=== PATIENT | male | born 1975 | race Caucasian/White ===

== ENCOUNTER 2019-08-25 15:48 | Observation (INO) | payer OTHER, SELFPAY ==
[2019-08-25 15:48] VITALS: BP 162/78; PULSE 84; RESP 18; TEMP 36.7; O2SAT 99
[2019-08-25 15:49] VITALS: BP 162/78; PULSE 87; RESP 16; TEMP 36.7; O2SAT 99; BMI 25.9
--- NOTE | 2019-08-25 16:04 | CT_ITS ---
STUDY: CT ABDOMEN AND PELVIS WITHOUT CONTRAST REASON FOR EXAM: Male, 43 years old. RT FLANK PAIN WORSENING, N/V LITHOTRIPSY YESTERDAY RADIATION DOSAGE (If Supplied By Facility): CTDIvol = ( 7.85 ) mGy, DLP = ( 392.22 ) mGycm TECHNIQUE: Transaxial images were obtained from the dome of the diaphragm to the symphysis pubis without oral contrast, and without intravenous contrast. Sagittal and coronal images were reconstructed. Individualized dose optimization techniques were used for this CT. COMPARISON: None. FINDINGS: Minor subsegmental atelectasis or scarring in both lower lobes.. The visualized portions of the heart are within normal limits. Small hiatal hernia is present Normal liver. Normal gallbladder and extrahepatic biliary system. Normal spleen. Normal pancreas. Normal bilateral adrenal glands. There are 2 nonobstructing left renal calculi. No evidence for hydronephrosis or renal mass. There are multiple tiny nonobstructing calculi in the right kidney however there is also hydroureteronephrosis association with stranding in the fat. There is a very tiny calculus in the distal right ureter just proximal to the pelvic junction measuring approximately 1 to 2 mm in size Normal visualized stomach. Mild diffuse ileus pattern is noted. No evidence for acute appendicitis Normal abdominal aorta. Normal inferior vena cava. Normal retroperitoneum. Normal urinary bladder. Normal abdominal wall. Lumbar spine demonstrates mild spondylosis. CT/Abdomen/Pelvis without Cont IMPRESSION: Bilateral nephrolithiasis. Right hydroureteronephrosis secondary to tiny calculus in the distal ureter just proximal to the ureterovesical junction Electronically Signed: Chris Liu MD at 16:36 EDT , Service support ,
[2019-08-25] MEDS: Ketorolac 30 MG/ML Syringe IV (16:10)
[2019-08-25] MEDS: Ondansetron 4 MG/2 ML Vial IV (16:10)
[2019-08-25 16:15] LABS: Absolute Lymphocyte Count 2.67 X10^3/uL (0.83-4.51); Basophil# 0.03 X10^3/uL; Basophil% 0.3 % (0-1); Eosinophil# 0.07 X10^3/uL; Eosinophils% 0.6 % (0-5); Hematocrit 36.9 % (40-54); Lymphocyte # 2.67 X10^3/ul (4.0); Mean Corp Hgb Conc 32.5 g/dL (32-36); Mean Corpuscular Volume 95.3 fL (80-94); Mean Platelet Vol. 8.9 fl (6.2-12.0); Monocyte% 6.9 % (0-10); NRBC Flagged by Analyzer 0 % (0-5); Neutrophil # 7.99 X10^3/uL (2.7-7.7); Neutrophil % 68.6 % (47-70); Platelet Count 238 K/mm3 (150-450); RBC Distribution Width SD 45.2 fl (35.1-43.9); Red Blood Count 3.87 M/mm3 (4.6-6.2); White Blood Count 11.6 K/mm3 (4.4-11.0)
--- NOTE | 2019-08-25 16:15 | ED.VISSUMM ---
- ER Visit Summary Date of Service: 08/25/19 Chief Complaint: Right flank pain History of Present Illness: The patient is a 43 M presenting with right flank pain. Patient has history of kidney stones and had lithotripsy performed yesterday per Dr. Killian at [place]. He has had nausea vomiting and persistent right flank pain. He continues to have hematuria, denies dysuria. Denies fever. He was previously taking [place] since Saturday but has discontinued this. He has not had a bowel movement since Saturday. Denies other complaints. Physical Examination: Vitals are stable. Patient is afebrile. Alert no acute distress. HEENT exam is unremarkable. Neck is supple. Lungs are clear and equal bilaterally. Heart is regular rate and rhythm. Abdomen is soft nontender nondistended. Right CVA tenderness. No guarding or rebound Extremities are unremarkable. Skin is warm and dry. No focal neurologic deficit. Remainder of exam is unremarkable. Emergency Department Course and Treatment: Patient was given IV fluids, Toradol, Zofran. CBC shows white count 11.6, hemoglobin 12.0. Chemistries show potassium 3.3, BUN 22, creatinine 1.39. CT abdomen pelvis shows bilateral nephrolithiasis. Right hydroureteronephrosis secondary to tiny calculus in the distal ureter just proximal to the ureterovesical junction. Patient's pain is improved. Discussed with Dr. Killian. Patient will be admitted. Disposition: Admission Impression: Urolithiasis This note was generated with [employer] dictation software. It may contain incorrect words, spelling, and punctuation that were not noted in review of the chart prior to signing ED Disposition - Plan for ED Patient: Referrals: Oswald Ren DO [Primary Care Provider] -
[2019-08-25 16:29] LABS: Anion Gap 4 (5-15); BUN 22 mg/dL (7-18); BUN/Creat Ratio 15.8 RATIO (10-20); Calcium,Total 8.6 mg/dL (8.5-10.1); Chloride 112 mmol/L (98-107); Creatinine, Serum 1.39 mg/dL (0.70-1.30); EST Glomerular Filtration Rate 59 mL/min (>60); Est Glom Filt Rate - Afr Amer 71 mL/min (>60); Estimated Creatinine Clearance 68.52 ml/min; Glucose 97 mg/dL (74-106); Potassium 3.3 mmol/L (3.5-5.1); Sodium Level 143 mmol/L (136-145)
--- NOTE | 2019-08-25 17:28 | PCM.HP.STD ---
History of Present Illness Date of Admission: 08/25/19 Chief Complaint: Right renal colic status post ESWL The patient is a 43 year old male who was treated for shockwave lithotripsy yesterday stone broke up well we did not put an stent and it was only an 8 mm stone came in today to the emergency room with severe renal colic and pain nausea vomiting CAT scan was done stones broken up multiple small fragments in the right kidney he is passing 1 of the small fragments in the distal ureter minimal hydronephrosis. Past Medical History Allergies morphine Allergy (Verified 08/25/19 15:51) Swelling Home Medications: Ambulatory Orders Medication Instructions Recorded NK 08/25/19 Surgical History: no surgical history Smoking Status: Never smoker Tobacco Use: Non-smoker Review of Systems Constitutional: Denies: Chills, Fever, Weight Change HEENT: Denies: Head Aches, Sinus Congestion, Sinus Drainage Cardiovascular: Denies: Chest Pain, Palpitations Respiratory: Denies: Cough, Shortness of breath at rest, Sputum production Gastrointestinal: Denies: Abdominal Pain, Nausea, Vomiting Genitourinary: Denies: Dysuria Musculoskeletal: Denies: Joint Pain, Joint Tenderness Skin: Denies: Rash, Wounds Neurological: Denies: Numbness, Tingling, Focal weakness Psychiatric: Denies: Anxiety, Depression, Homicidal Ideations, Suicidal Ideations Hematologic/ Lymphatic: Denies: Easy Bruising, Easy Bleeding VTE Information - Inpt Only VTE Present on Admission: No VTE Mechan Device Prophylaxis: SCD's - Physical Exam Vitals/I&O's: Vital Signs Temp Pulse Resp BP Pulse Ox 98.0 F 87 16 162/78 H 99 08/25/19 15:49 08/25/19 15:49 08/25/19 15:49 08/25/19 15:49 08/25/19 15:49 Oxygen Delivery Method Room Air Weight: 79.5 kg Body Mass Index (BMI) 25.9 General: Alert, Oriented x3, Cooperative HEENT: Atraumatic, PERRLA, EOMI, Normocephalic Neck: Supple, No JVD, Negative Carotid Bruits Lungs: Clear to auscultation, Normal air movement Cardiovascular: Regular rate, No murmurs Abdomen: Bowel Sounds Present, Soft, Non Tender Extremities: No edema, Capillary Refill Less than 3 Seconds Skin: No rashes, No breakdown Musculoskeletal: No Tenderness to Palpation of Joints or Extremities Neurological: Cranial nerves II-XII grossly intact Psych/Mental Status: Normal Affect, Appropriate Laboratory Results 08/25/19 16:07: WBC 11.6 H, RBC 3.87 L, Hgb 12.0 L, Hct 36.9 L, MCV 95.3 H, MCH 31.0, MCHC 32.5, RDW Std Deviation 45.2 H, RDW Coeff of Juan Jose 13.0, Plt Count 238, MPV 8.9, Immature Gran % (Auto) 0.600, Neut % (Auto) 68.6, Lymph % (Auto) 23.0, Pike % (Auto) 6.9, Eos % (Auto) 0.6, Baso % (Auto) 0.3, Absolute Neuts (auto) 8.0 H, Absolute Lymphs (auto) 2.67, Nucleated RBC % 0 08/25/19 16:07: Sodium 143, Potassium 3.3 L, Chloride 112 H, Carbon Dioxide 27.0, Anion Gap 4 L, BUN 22 H, Creatinine 1.39 H, Estim Creat Clear Calc 68.52, Est GFR (MDRD) Af Amer 71, Est GFR (MDRD) Non-Af 59 L, BUN/Creatinine Ratio 15.8, Glucose 97, Calcium 8.6 Current Medications Sodium Chloride () 1,000 mls @ 250 mls/hr IV .Q4H [facility] Assessment/Plan Status post ESWL passing a very small fragment has severe pain required the ER visit for pain control we will keep him overnight and see how he does if he does okay we may send him home with just pain medicine if he still has more episodes of severe pain may elect to place a stent tomorrow in the OR patient was agreeable with that
[2019-08-25 17:49] LABS: Bacteria 0 SEEN /hpf (None Seen); Mucous, Urine 0 SEEN /hpf (<or=2+); Squamous Epithelial Cells - UA 0 SEEN /hpf (0-5)
[2019-08-25] MEDS: 0.9% Normal Saline 1,000 ML 100 ML IV ×3 (18:00→22:43)
[2019-08-25 18:01] VITALS: BP 138/79; PULSE 74; RESP 16; TEMP 36.7; O2SAT 95
[2019-08-25 18:09] LABS: Color, Urine Yellow (Yellow); Glucose, Dipstick Normal (Normal); Ketone-Dipstick Negative (Negative); Leukocyte Esterase-Dipstick 25 /ul (Negative); Nitrite-Dipstick Negative (Negative); Occult Blood-Urine 250 /ul (Negative); Protein-Dipstick Negative (Negative); Specific Gravity, Urine 1.015 (1.002-1.030); Urine Bilirubin Dipstick Negative (Negative); Urine Clarity Clear (Clear); Urine Urobilinogen Normal (Normal)
[2019-08-25 18:36] LABS: Red Blood Cells-Urine 5-10 SEEN /hpf (0-5); White Blood Cells 0-5 SEEN /hpf (0-5)
[2019-08-25 18:44] VITALS: BMI 25.5
[2019-08-25 18:49] VITALS: BP 133/79; PULSE 75; RESP 20; TEMP 37.3; O2SAT 99
[2019-08-25] MEDS: HYDROcodone Bitartrate/Apap 5/325 Tablet PO (18:56)
[2019-08-25 19:33] VITALS: BMI 25.5
[2019-08-25] MEDS: Docusate Sodium 100 MG Capsule PO (22:44)
[2019-08-25] MEDS: Ketorolac 15 MG/ML Vial IV (22:44)
[2019-08-25] MEDS: Magnesium Hydroxide 30 ML UDC 15 ML PO (22:49)
[2019-08-25] MEDS: Cefdinir 300 MG Capsule PO (22:57)
[2019-08-26] MEDS: 0.9% Normal Saline 1,000 ML 100 ML IV (05:30)
--- NOTE | 2019-08-26 06:57 | DCINST_ITS ---
Discharge Diet: Light diet - advance as tolerated Discharge Activity: Return to Normal Activity Call your doctor if your incision/area has: Increased Pain/ Swelling Allergies/Adverse Reactions: Allergies morphine Allergy (Verified 08/25/19 15:51) Swelling Medications to take at Discharge NK 08/25/19 Primary Care Physician: Oswald Ren DO [Primary Care Provider] - Test Results: Test results from this visit will be discussed in further detail at your follow- up appointment, if applicable. Please Follow Up With: Roger Killian MD When: in 2 weeks, please call to make an appointment.
[2019-08-26 07:30] VITALS: BP 149/90; PULSE 66; RESP 18; TEMP 37; O2SAT 95
[2019-08-26] MEDS: Docusate Sodium 100 MG Capsule PO (07:38)
[2019-08-26] MEDS: Bisacodyl 5 MG Tablet PO (07:38)
== END 2019-08-26 08:13 | disposition home or self-care (01) ==
LOC: ED 16:33 → MS3 18:11
PROVIDERS: Admitting Provider Urology; Emergency Provider Emergency Medicine; PCP Family Medicine; Visit Provider Urology
DX: N13.2 Hydronephrosis with renal and ureteral calculous obstruction (principal); Z98.890 Other specified postprocedural states
CPT/HCPCS: 74176; 80048; 81001; 85025; 96361; 96374; 96375; 96376; 99218; 99284; J7030; A4216; G0378; J2405

== ENCOUNTER → 2019-09-03 10:05 | Outpatient (CLI) | payer OTHER, SELFPAY ==
[2019-08-25 18:44] VITALS: BMI 25.5
--- NOTE | 2019-09-03 10:35 | RAD_ITS ---
STUDY: X-RAY - ABDOMEN/PELVIS REASON FOR EXAM: Male, 43 years old. FOLLOW UP KIDNEY STONE RT SIDE TECHNIQUE: Single AP view of the abdomen / pelvis. COMPARISON: None. FINDINGS: There is a moderate amount of colonic fecal material. The visualized liver, spleen and kidneys are grossly normal in size and morphology. Normal soft tissue structures. Normal visualized osseous structures. RAD/Abdomen Single View IMPRESSION: Normal x-ray examination of the abdomen and pelvis. Electronically Signed: Eddie Allen, at 12:47 EDT , Service support ,
== END ==
PROVIDERS: PCP Family Medicine; Referring Provider Urology; Visit Provider Urology
DX: N20.0 Calculus of kidney (principal)
CPT/HCPCS: 74018; 82360

== ENCOUNTER 2019-09-11 09:17 | Day surgery (SDC) | payer OTHER, SELFPAY ==
[2019-09-11] VITALS (7 sets, daily range): BP systolic 107–137; BP diastolic 59–85; PULSE 61–73; RESP 14–16; TEMP 36–36.7; O2SAT 97–100; BMI 24.3
[2019-09-11] MEDS: Lactated Ringers 1,000 ML 100 ML IV ×2 (09:52→13:05)
--- NOTE | 2019-09-11 10:34 | PCM.HP.STD ---
Problem List (1) Left renal stone Status: Acute History of Present Illness Date of Admission: 09/11/19 Chief Complaint: Left kidney stone The patient is a 43 year old male with a history of kidney stones who has a left kidney stone in the upper pole the left kidney about 8 to 9 mm in size and plan to proceed with shockwave lithotripsy and stent placement of the left side Past Medical History Allergies morphine Allergy (Verified 09/11/19 09:36) Swelling Home Medications: Ambulatory Orders Medication Instructions Recorded Acetaminophen [Tylenol Extra 500 - 1,000 mg PO Q6H PRN PRN 09/07/19 Strength] Surgical History: no surgical history Smoking Status: Never smoker Tobacco Use: Non-smoker Review of Systems Constitutional: Denies: Chills, Fever, Weight Change HEENT: Denies: Head Aches, Sinus Congestion, Sinus Drainage Cardiovascular: Denies: Chest Pain, Palpitations Respiratory: Denies: Cough, Shortness of breath at rest, Sputum production Gastrointestinal: Denies: Abdominal Pain, Nausea, Vomiting Genitourinary: Denies: Dysuria Musculoskeletal: Denies: Joint Pain, Joint Tenderness Skin: Denies: Rash, Wounds Neurological: Denies: Numbness, Tingling, Focal weakness Psychiatric: Denies: Anxiety, Depression, Homicidal Ideations, Suicidal Ideations Hematologic/ Lymphatic: Denies: Easy Bruising, Easy Bleeding VTE Information - Inpt Only VTE Present on Admission: No VTE Mechan Device Prophylaxis: SCD's Patient Problems: Active and Suspected Problems Left renal stone (Acute) - Physical Exam Vitals/I&O's: Vital Signs Temp Pulse Resp BP Pulse Ox 98.1 F 63 15 122/67 H 99 09/11/19 09:37 09/11/19 09:37 09/11/19 09:37 09/11/19 09:37 09/11/19 09:37 Oxygen Delivery Method Room Air Weight: 74.7 kg Body Mass Index (BMI) 24.3 General: Alert, Oriented x3, Cooperative HEENT: Atraumatic, PERRLA, EOMI, Normocephalic Neck: Supple, No JVD, Negative Carotid Bruits Lungs: Clear to auscultation, Normal air movement Cardiovascular: Regular rate, No murmurs Abdomen: Bowel Sounds Present, Soft, Non Tender Extremities: No edema, Capillary Refill Less than 3 Seconds Skin: No rashes, No breakdown Musculoskeletal: No Tenderness to Palpation of Joints or Extremities Neurological: Cranial nerves II-XII grossly intact Psych/Mental Status: Normal Affect, Appropriate Microbiology Past 72 Hours 09/10/19 16:30 Mucosa - Nasopharyngeal Coronavirus COVID-19 PCR - Final Laboratory Results 09/11/19 16:30: COVID-19 ([facility]) Cancelled Current Medications Lactated Ringer's () 1,000 mls @ 100 mls/hr IV .Q10H TI Last Admin: 09/11/19 09:52 Dose: 100 mls/hr Documented by: Assessment/Plan All Active Problems Left renal stone (Acute) Plan to proceed with shockwave lithotripsy and left stent placement.
--- NOTE | 2019-09-11 10:38 | PCM.DC.URO ---
Discharge Diet: No Restrictions, Light diet - advance as tolerated Discharge Activity: Return to Normal Activity, May Not Drive - for 2 days. Additional Activity Instructions:: Please be aware that pain medications may cause nausea. You should typically eat light foods as you take your pain medication. Pain medication may cause constipation, if this is a problem for you, please discuss with your doctor. Allergies/Adverse Reactions: Allergies morphine Allergy (Verified 09/11/19 09:36) Swelling Medications to take at Discharge Acetaminophen [Tylenol Extra Strength] 500 - 1,000 mg PO Q6H PRN PRN 09/07/19 Ciprofloxacin [Cipro] 500 mg PO BID #6 tab 09/11/19 Hydrocodone/Acetaminophen [Pengilly 5-325 Tablet] 1 each PO Q4H PRN PRN 5 Days #14 tablet 09/11/19 The following prescriptions were given: Ciprofloxacin [Cipro] 500 mg PO BID #6 tab Transmission Status: Pending to [facility]/pharmacy #[id number] Hydrocodone/Acetaminophen [Pengilly 5-325 Tablet] 1 each PO Q4H PRN PRN 5 Days #14 tablet PRN Reason: Pain Score 1-10/10 Transmission Status: Received by [facility]/pharmacy #[id number] Primary Care Physician: Care Physician,No Primary [Primary Care Provider] - Test Results: Test results from this visit will be discussed in further detail at your follow-up appointment, if applicable. Please Follow Up With: Roger Killian MD When: please call to make an appointment.
[2019-09-11] MEDS: Cefazolin 2 GM in 0.9% Normal Saline 100 ML IV (11:06)
--- NOTE | 2019-09-11 12:06 | PCM.OPRPT ---
Problem List (1) Left renal stone Status: Acute Report of Operation Date of Procedure: 09/11/19 Pre-Operative Diagnosis: Left kidney stone Post-Operative Diagnosis: Same Surgery/Procedure Performed:: Cystoscopy left stent placement left extracorporeal shockwave lithotripsy Description of Surgical Findings:: 43-year-old male who has a stone up in the left kidney. Presents for treatment of the kidney stone with shockwave lithotripsy. Lanny place a stent to help prevent colic and also help pass the stones. Patient was taken back to the operating room after smooth induction of general anesthesia he was placed supine on the table venous and testicles are prepped and draped in usual sterile fashion, went into the bladder with a 21 English rigid cystourethroscope the entire length the urethra is normal prostate is normal inside the bladder the trigone was normal left and right ureter orifice were identified I then cannulated the left ureter orifice with a Glidewire advance a wire up into the kidney and over the wire place a stent 6 English by 26 cm stent with the string on the stent, patient was then positioned on the lithotripter table and we proceeded with shockwave lithotripsy at a total of 3000 shockwaves were delivered to the stone in the upper pole the left kidney the stone broke up really well, we used treated the stone at a rate of 90 shocks per minute, up to 6 to 7 kV per power and at the end of the treatment cycle the stone it broken up well patient said anesthetic was reversed plan to see him next week with a KUB and for stent removal. Type of Anesthesia:: General Drains: stent - Admit VTE Documentation VTE Present on Admission: No VTE Mechan Device Prophylaxis: SCD's
[2019-09-11] MEDS: Ketorolac 15 MG/ML Vial IV (13:02)
--- NOTE | 2019-09-11 16:00 | SUR.PHASEII ---
Pt. ambulated to bathroom with 1 assist c/o of being dizz. 2 nurses helped back to room. Pt. c/o of nausea, agreed to try sip on sprite.
--- NOTE | 2019-09-11 16:31 | SUR.PHASEII ---
pt. had small emesis. Charge nurse notified.
== END 2019-09-11 17:00 | disposition home or self-care (01) ==
LOC: SDC 09:18 → AC 09:20
PROVIDERS: Referring Provider Urology; Visit Provider Urology
PROC: (CPT 50590; principal; 2019-09-11 11:25)
DX: N20.0 Calculus of kidney (principal); Z87.442 Personal history of urinary calculi; Z11.59 Encounter for screening for other viral diseases
CPT/HCPCS: 50590; 52332; 87635; G2023; J7120; C1769; C2617; J2405; U0004

== ENCOUNTER → 2019-09-17 15:16 | Outpatient (CLI) | payer OTHER, SELFPAY ==
[2019-09-11 09:37] VITALS: BMI 24.3
--- NOTE | 2019-09-17 15:22 | RAD_ITS ---
STUDY: X-RAY - ABDOMEN/PELVIS REASON FOR EXAM: Male, 43 years old. Follow-up after left ureteral stent placement and lithotripsy last Saturday. TECHNIQUE: AP supine and decubitus views of the abdomen and pelvis. COMPARISON: September 03, 2019. FINDINGS: The lung bases are not included. There is an unremarkable bowel gas pattern. There is no demonstrated free abdominal air. The visualized liver, spleen and kidneys are grossly normal in size and morphology. There is no left ureteral stent in satisfactory position. No evidence of renal calculus or ureteral calculus seen. Normal soft tissue structures. Stable osseous structures. RAD/Abdomen Single View IMPRESSION: Left ureteral stent without acute abnormality or other major interval change. Electronically Signed: Sebastien Knox DO at 23:20 EDT Tel [phone], Service support ,
== END ==
PROVIDERS: Referring Provider Urology; Visit Provider Urology
DX: N20.0 Calculus of kidney (principal)
CPT/HCPCS: 74018

== ENCOUNTER → 2019-09-18 08:48 | Outpatient (CLI) | payer OTHER, SELFPAY ==
[2019-09-11 09:37] VITALS: BMI 24.3
== END ==
PROVIDERS: Referring Provider Urology; Visit Provider Urology
DX: N20.0 Calculus of kidney (principal)

== ENCOUNTER 2024-09-26 04:54 | Emergency (ER) | payer BC, SELFPAY ==
[2024-09-26 04:57] VITALS: BP 142/102; PULSE 78; RESP 18; TEMP 36.7; O2SAT 100; BMI 25.4
--- NOTE | 2024-09-26 05:13 | EDS_ITS ---
HPI HPI - GI History of Present Illness Chief Complaint: Flank Pain Informant: patient and spouse/S.O. Narrative Narrative: 48-year-old male awoke this morning sudden onset severe pain in the right lower quadrant and right flank, nausea and vomiting. Some trouble getting urine output that is not necessarily new. No dysuria or hematuria. No fevers or chills. States he has had kidney stones in the past and required surgery to extract them, and initially thought this was similar but this pain is worse. Feels like a lot of pressure on the inside. Not in his back necessarily. [facility] Medical History (Updated 09/26/24 @ 06:[address] Sarwat Ramos MD) Left renal stone Lumbar radiculopathy, acute Acute lumbar myofascial strain Home Medications ?Medication ?Instructions ?Recorded ?Last Taken ?Type acetaminophen 500 mg tablet 500 - 1,000 mg PO Q6H PRN PRN Pain 09/07/19 Unknown History Or Fever atorvastatin 10 mg tablet 10 mg PO DAILY 09/26/24 Unkn own History fluticasone propionate 50 1 spray intranasal DAILY PRN 09/26/24 Unknown History mcg/actuation nasal allergy symptoms spray,suspension (24 Hour Allergy Relief) ondansetron 8 mg disintegrating 8 mg PO Q8H PRN nausea and 09/26/24 Unknown Rx tablet vomiting #15 tabs oxycodone-acetaminophen 5 mg-325 1 tab PO Q6H PRN PRN Pain 3 days 09/26/24 Unknown Rx mg tablet #12 TABLETS tamsulosin 0.4 mg capsule 0.4 mg PO DAILY #7 caps 11/13 Unknown Rx Allergy/AdvReac Type Severity Reaction Status Date / Time hyoscyamine (From Levsin) Allergy Unknown unknown Verified 09/26/24 05:14 morphine Allergy Swelling Verified 09/26/24 04:57 Social History Smoking Status: Never smoker ROS ROS ED Constitutional Constitutional ED: Denies chills or fever(s) Eyes Eyes: Denies change in vision or diplopia ENT ENT ED: Denies rhinorrhea or sore throat Cardiovascular Cardiovascular: Denies chest pain or palpitations Respiratory/Chest Respiratory/Chest: Denies cough or dyspnea Gastrointestinal Gastrointestinal: Reports abdominal pain, nausea and vomiting; Denies diarrhea Genitourinary Genitourinary ED: Denies dysuria or hematuria Musculoskeletal Musculoskeletal: Denies back pain or neck pain Integumentary Denies abscess or rash Neurologic Neurologic: Denies headache(s), paresthesias or weakness Psychiatric Psychiatric: Denies anxiety or suicidal thoughts EXAM Physical Exam Const Vital Signs: 09/26/24 04:57 Temperature 98.0 F Temperature Source Oral Pulse Rate 78 Respiratory Rate 18 Blood Pressure 142/102 H Blood Pressure Mean 115 Pulse Ox 100 Oxygen Delivery Method Room Air Positive well nourished and well developed Constitutional Narrative: Mild painful distress able to walk General Appearance ED: well developed HEENT Reports moist mucous membranes normocephalic and atraumatic Eyes PERRL and EOMs intact bilaterally Neck full ROM and supple Resp normal respiratory effort and clear to auscultation bilaterally Cardio regular rate, regular rhythm and no murmurs GI non-tender and non-distended GI Narrative: No pulsatile mass. No Flores Honeycutt sign. No Jered sign. Auscultation: normoactive bowel sounds Palpation: soft Back/Spine no CVA tenderness General Back: other FROM Extremity normal to inspection General Extremety ED: Negative for edema, pulses abnormal or tenderness General Extremity: Negative for edema or pulses abnormal Neuro oriented x3, CN's II-XII intact bilaterally and no sensory deficits noted Sensorium / Orientation: awake and alert Motor Exam: strength 5/5 throughout Skin no rashes or lesions noted and no wounds MDM MDM MDM Narrative Medical decision making narrative: Suspect stone, less likely perforated viscus; labs and a CT were obtained I reviewed the images and the report which I agree with, it is consistent with a kidney stone, 4 mm right UVJ causing hydroureteronephrosis. He is feeling much better after fentanyl and Zofran. Urine shows no sign of infection. We discussed Flomax he is interested in trying that, we discussed the risks of first dose syncope, and he is comfortable trying that. Expectant management indicated will discharge him home with strainers and prescriptions for symptom control. Discussed reasons to return and follow-up. We also discussed multiple bilateral nephroliths which all looked relatively small. Also with regards to his potassium at 5.5, there was hemolysis, and I suspect this is lab error due to the hemolysis. History & Record Review Discussion w/independent historian: Patient and Family Lab Data Attestation: I reviewed the patient's lab results. Labs: Laboratory Results - last 24 hr 09/26/24 05:20 Sodium 138 Potassium 5.5 H Chloride 105 Carbon Dioxide 18.9 L Anion Gap 14 BUN 21 H Creatinine 1.21 H Estim Creat Clear Calc 74.66 Est GFR (MDRD) Non-Af 74 BUN/Creatinine Ratio 17.7 Glucose 122 H Calcium 9.5 Urine Color Yellow Urine Clarity Clear Urine pH 7.0 Ur Specific Quinlan 1.010 Urine Protein 15 H Urine Glucose (UA) Normal Urine Ketones Negative Urine Occult Blood 50 H Urine Nitrite Negative Urine Bilirubin Negative Urine Urobilinogen Normal Ur Leukocyte Esterase Negative Urine RBC 0-5 SEEN Urine WBC 0 SEEN Ur Squamous Epith Cells 0 SEEN Urine Bacteria 0 SEEN Urine Mucus 0 SEEN Radiography Diagnostic Testing: Clinical Impression(s) from Imaging Studies Abdomen/Pelvis CT 09/26/24 05:35 IMPRESSION: 1. Stone at the right ureterovesicular junction measuring 4 mm results in mild upstream hydroureteronephrosis. 2. Additional nonobstructing stones in both kidneys. Reading Location: [id number] Discharge Plan Triage Chief Complaint: Flank Pain ED Provider: Sarwat Ramos Dx/Rx/DC Orders Clinical Impression: Renal colic on right side, Ureterolithiasis Instructions: ED Urine Strainer, ED Kidney Stone with Pain Prescriptions: New ondansetron 8 mg tablet,disintegrating 8 mg PO Q8H PRN (Reason: nausea and vomiting) Qty: 15 0RF oxycodone-acetaminophen 5-325 mg tablet 1 tab PO Q6H PRN PRN (Reason: Pain) 3 Days Qty: 12 0RF tamsulosin 0.4 mg capsule 0.4 mg PO DAILY Qty: 7 0RF No Action acetaminophen 500 MG tablet 500 - 1,000 mg PO Q6H PRN PRN (Reason: Pain Or Fever) atorvastatin 10 mg tablet 10 mg PO DAILY fluticasone propionate [24 Hour Allergy Relief] 50 mcg/actuation spray,suspension 1 spray intranasal DAILY PRN (Reason: allergy symptoms) Rx Instructions: administer into each nostril Primary Care Provider: Dustin Chung NP Referrals: Roger Killian MD [Med Staff - Active Staff] - 1 Week if not improving Print Language: Vietnamese Disposition Disposition: Home, Self Care
[2024-09-26] MEDS: fentaNYL 100 MCG/2 ML Ampul 50 MCG IV (05:23)
[2024-09-26] MEDS: Ketorolac 30 MG/ML Syringe IV (05:25)
[2024-09-26] MEDS: Ondansetron 4 MG/2 ML Vial IV (05:27)
[2024-09-26 05:35] LABS: Bacteria 0 SEEN /hpf (None Seen); Mucous, Urine 0 SEEN /hpf (<or=2+); Squamous Epithelial Cells - UA 0 SEEN /hpf (0-5); White Blood Cells 0 SEEN /hpf (0-5)
--- NOTE | 2024-09-26 05:35 | CT_ITS ---
PROCEDURE: ABDOMEN/PELVIS WITHOUT CONT 09/26/2024 REASON FOR EXAM: R FLANK PAIN, POSS KIDNEY STONE TECHNIQUE: Abdomen and pelvis CT without intravenous contrast. Noncontrast technique limits evaluation of the abdominal and pelvic viscera. Coronal and Sagittal reconstruction series were provided. One or more dose reduction techniques were used (e.g., Automated exposure control, adjustment of the mA and/or kV according to patient size, use of iterative reconstruction technique). PATIENT PREPARATION: Per protocol CTDIvol: 7.4 mGy DLP: 402 mGy-cm COMPARISON: CT abdomen and pelvis on 08/25/2019 FINDINGS: Lung bases: Unremarkable Liver: Hypodense lesions in the left hepatic lobe are unchanged and likely simple cysts. Gallbladder: Unremarkable Spleen: Normal size. Pancreas: Normal size. No surrounding inflammation. Adrenals: Unremarkable Kidneys/ureters/bladder: There is a stone near the right ureterovesicular junction measuring 3 mm (series 2, image 155) and resulting in mild upstream hydroureteronephrosis. There are multiple additional nonobstructing stones in both kidneys which measure up to 9 mm on the left and 4 mm on the right. Reproductive Organs: Unremarkable Bowel: No obstruction. Mild wall thickening throughout the colon, most pronounced at the hepatic flexure, is favored to be the result of underdistention as there is no significant surrounding inflammatory stranding. Lymph nodes: Unremarkable Vasculature: Unremarkable Bones: Unremarkable Abdominal wall: Tiny fat containing umbilical hernia, unchanged. CT/Abdomen/Pelvis without Cont IMPRESSION: 1. Stone at the right ureterovesicular junction measuring 4 mm results in mild upstream hydroureteronephrosis. 2. Additional nonobstructing stones in both kidneys. Reading Location: [id number]
[2024-09-26 05:41] LABS: Absolute Neutrophil Count 2.7 X10^3/uL (2.0-7.7); Basophil# 0.06 X10^3/uL; Basophil% 0.9 % (0-1); Eosinophil# 0.14 X10^3/uL; Eosinophils% 2.1 % (0-5); Hematocrit 39.8 % (40-54); Hemoglobin 13.6 g/dL (13.0-16.5); Lymphocyte % 46.9 % (19-41); Mean Corp Hgb Conc 34.2 g/dL (32-36); Mean Corpuscular Hgb 31.4 pg (27.0-32.0); Mean Corpuscular Volume 91.9 fL (80-94); Mean Platelet Vol. 10.6 fl (6.2-12.0); Monocyte# 0.57 X10^3/uL; Monocyte% 8.6 % (0-10); NRBC Flagged by Analyzer 0 % (0-5); Neutrophil # 2.73 X10^3/uL (2.7-7.7); Neutrophil % 41.3 % (47-70); POSITIVE COUNT YES; RBC Distribution Width CV 12.8 % (11.6-14.6); Red Blood Count 4.33 M/mm3 (4.6-6.2); White Blood Count 6.6 K/mm3 (4.4-11.0)
[2024-09-26 05:56] LABS: Color, Urine Yellow (Yellow); Glucose, Dipstick Normal (Normal); Ketone-Dipstick Negative (Negative); Leukocyte Esterase-Dipstick Negative /ul (Negative); Nitrite-Dipstick Negative (Negative); Occult Blood-Urine 50 /ul (Negative); Protein-Dipstick 15 mg/dl (Negative); Urine Bilirubin Dipstick Negative (Negative); Urine Clarity Clear (Clear); Urine Urobilinogen Normal (Normal)
[2024-09-26 05:57] LABS: Anion Gap 14 (5-15); BUN 21 mg/dL (4-19); BUN/Creat Ratio 17.7 RATIO (10-20); Calcium,Total 9.5 mg/dL (7.6-11.0); Carbon Dioxide 18.9 mmol/L (21.0-32.0); Chloride 105 mmol/L (98-108); Creatinine, Serum 1.21 mg/dL (0.70-1.20); EST Glomerular Filtration Rate 74 (>60); Estimated Creatinine Clearance 74.66 ml/min (50-250); Glucose 122 mg/dL (70-99); Potassium 5.5 mmol/L (3.3-5.1); Sodium Level 138 mmol/L (133-145)
--- OUTSIDE RECORDS SUMMARY | 2024-09-26 05:57 | XMS RPT_ITS | CCD ---
Author Organization [facility] Care Team Providers Care [employer] Name Role Phone Care Physician, No Primary Referring Unava ilGerard Charles Attending Unavailable Care Physician, No Primary Primary Care Unava ilable Care Physician, No Primary Primary Care Unava ilable Care Physician, No Primary Referring Unava ilGerard Charles Attending Unavailable Care Physician, No Primary Referring Unava ilable Gerard Lazcano Attending Unavailable Care Physician, No Primary Primary Care Unava ilable Care Physician, No Primary Primary Care Unava ilGerard Charles Attending Unavailable BALTES CUSHION SEWER-CABLE TELEVISION TECHNICIAN, TIFFANY Primary Care Physician BALTES CUSHION SEWER-CABLE TELEVISION TECHNICIAN, TIFFANY Attending Unavailabl e BALTES CUSHION SEWER-CABLE TELEVISION TECHNICIAN, TIFFANY Primary Care Unavailabl e DAHLIA FARRELL, DR AWA Michele Attending Unavail able BALTES CUSHION SEWER-CABLE TELEVISION TECHNICIAN, TIFFANY Primary Care Unavailabl e BALTES CUSHION SEWER-CABLE TELEVISION TECHNICIAN, TIFFANY Attending Unavailabl e BALTES CUSHION SEWER-CABLE TELEVISION TECHNICIAN, TIFFANY Primary Care Unavailabl e BALTES CUSHION SEWER-CABLE TELEVISION TECHNICIAN, TIFFANY Attending Unavailabl e BALTES CUSHION SEWER-CABLE TELEVISION TECHNICIAN, TIFFANY Primary Care Unavailabl e BALTES CUSHION SEWER-CABLE TELEVISION TECHNICIAN, TIFFANY Attending Unavailabl e BALTES CUSHION SEWER-CABLE TELEVISION TECHNICIAN, TIFFANY Primary Care Unavailabl e Allergies Allergy Classification Reported Allergen(s) Allergy Type Date of Onset Reaction(s) Facility (1 source) Morphine Drug Allergy 09-11-2019 [facility] Repository (4 sources) Hyoscyamine; Translations: [L-hyoscyamine] Drug Allergy [facility] (4 sources) Morphine; Translations: [morphine] Drug Allergy [facility] Comment on above: SWELLING, HIVES Medications Current Medications Medication Drug Class(es) Dates Sig (Normalized) Sig (Original) amoxicillin 500 mg / clavulanate 125 mg oral tablet (1 source) Penicillin-class Antibacterial Start: 04-05-2023 End: 04-15-2023 take 1 tablet by mouth every twelve hours amoxicillin-clavul anate 500 mg-125 mg oral tablet 1 tab(s), Oral, q12h, # 20 tab(s), 0 Refill(s), 79.7 Start Date: 04/05/23 Stop Date: 04/15/23 Status: Ordered atorvastatin 10 mg oral tablet (2 sources) HMG-CoA Reductase Inhibitor Start: 01-30-2024 atorvastatin 10 mg oral tablet Dose : 10 mg = 1 tab(s), Oral, Daily, # 100 tab(s), 0 Refill(s), Pharmacy: [facility]/pharmacy #[id number], Hypercholesteremia , 171, cm, 01/29/24 16:01:00 EDT, Height, kg, 01/29/24 16:01:00 EDT, Dosing Weight Start Date: 01/30/24 Status: Ordered fluticasone propionate 0.05 mg/actuat metered dose nasal spray (4 sources) Corticosteroid Start: 02-27-2022 take 1 dose nasal route once daily in the morning Flonase 50 mcg/inh nasal spray Dose = 1 spray(s), Nostril, each, qAM, 0 Refill(s) Start Date: 02/27/22 Status: Ordered naproxen sodium 220 mg oral capsule (4 sources) Nonsteroidal Anti-inflammatory Drug Start: 12-31-2018 Aleve 220 mg oral capsule Dose : 440 mg = 2 cap(s), Oral, Once, 0 Refill(s) Start Date: 12/31/18 Status: Ordered omeprazole 20 mg delayed release oral capsule (1 source) Proton Pump Inhibitor Start: 02-27-2024 End: 03-28-2024 omeprazole 20 mg oral delayed release capsule Dose : 20 mg = 1 cap(s), Oral, qDay, # 30 cap(s), 0 Refill(s), Pharmacy: [facility]/pharmacy #[id number], GERD (gastroesophageal reflux disease), 169.6, cm, 02/27/24 16:00:00 EST, Height, kg, 02/27/24 16:00:00 EST, Dosing Weight Start Date: 02/27/24 Stop Date: 03/28/24 Status: Ordered Problems Active Problems Problem Classification Problem Date Documented Date Episodic/Chronic Esophageal disorders (1 source) Gastroesophageal reflux disease 02-27-2024 Chronic Nonspecific chest pain (1 source) Atypical chest pain 02-27-2024 Episodic Spondylosis; intervertebral disc disorders; other back problems (1 source) Radiculopathy, lumbar region; Translations: [Radiculopathy, lumbar region] Onset: 02-08-2022 Episodic Sprains and strains (1 source) Strain of muscle, fascia and tendon of lower back, initial encounter; Translations: [Strain of muscle, fascia and tendon of lower back, initial encounter] Onset: 02-08-2022 Episodic Unclassified (1 source) Low back pain, unspecified; Translations: [Low back pain, unspecified] Onset: 02-08-2022 Past or Other Problems Problem Classification Problem Date Documented Da te Episodic/Chronic Other screening for suspected conditions (not mental disorders or infectious disease) (2 sources) Encounter for screening for malignant neoplasm of colon; Translations: [Encounter for screening for malignant neoplasm of colon] Onset: 04-05-2023 Episodic Results Test Name Value Interpretation Reference Range Facility .Auto Diffon 02-11-2024 Basophil, Absolute 0.1 10 3/mcL Normal 0.0-0.2 [facility] Comment on above: Performed By: #### C MP, ADIFF, GFR, LIPID, ANEU, CBC #### [address] [address] Basophils/100 WBC (Bld) 0.8 % Normal 0.0-2.5 [facility] Comment on above: Performed By: #### C MP, ADIFF, GFR, LIPID, ANEU, CBC #### [address] [address] Eosinophil, Absolute 0.2 10 3/mcL Normal 0.0-0.7 [facility] Comment on above: Performed By: #### C MP, ADIFF, GFR, LIPID, ANEU, CBC #### [address] [address] Eosinophils/100 WBC (Bld) 2.0 % Normal 0.0-7.0 [facility] Comment on above: Performed By: #### C MP, ADIFF, GFR, LIPID, ANEU, CBC #### [address] [address] Lymphocyte, Absolute 3.9 10 3/mcL Normal 0.9-4.3 [facility] Comment on above: Performed By: #### C MP, ADIFF, GFR, LIPID, ANEU, CBC #### [address] [address] Lymphocytes/100 WBC (Bld) 51.5 % High 20.0-40.0 [facility] Comment on above: Performed By: #### C MP, ADIFF, GFR, LIPID, ANEU, CBC #### [address] [address] Monocyte, Absolute 0.6 10 3/mcL Normal 0.1-1.4 [facility] Comment on above: Performed By: #### C MP, ADIFF, GFR, LIPID, ANEU, CBC #### [address] [address] Monocytes/100 WBC (Bld) 8.0 % Normal 2.0-13.0 [facility] Comment on above: Performed By: #### C MP, ADIFF, GFR, LIPID, ANEU, CBC #### [address] [address] Neutrophils/100 WBC (Bld) 37.7 % Low 50.0-75.0 [facility] Comment on above: Performed By: #### C MP, ADIFF, GFR, LIPID, ANEU, CBC #### [address] [address] .GFRon 02-11-2024 GFR 73 ml/min/1.73sqm Normal [facility] Comment on above: Result Comment: GFR Population mean for , Non- Americans Ages 20-29 = 116 mL/min/1.73 sq.m. Ages 30-39 = 107 mL/min/1.73 sq.m. Ages 40-49 = 99 mL/min/1.73 sq.m. Ages 50-59 = 93 mL/min/1.73 sq.m. Ages 60-69 = 85 mL/min/1.73 sq.m. Ages 70+ = 75 mL/min/1.73 sq.m. Chronic Kidney Disease: Less than 60 mL/min/1.73 square meters End Stage Renal Disease: Less than 15 mL/min/1.73 square meters Performed By: #### C MP, ADIFF, GFR, LIPID, ANEU, CBC #### [address] [address] GFR Non- 61 ml/min/1.73sqm Normal [facility] Comment on above: Result Comment: GFR Population mean for , Non- Americans Ages 20-29 = 116 mL/min/1.73 sq.m. Ages 30-39 = 107 mL/min/1.73 sq.m. Ages 40-49 = 99 mL/min/1.73 sq.m. Ages 50-59 = 93 mL/min/1.73 sq.m. Ages 60-69 = 85 mL/min/1.73 sq.m. Ages 70+ = 75 mL/min/1.73 sq.m. Chronic Kidney Disease: Less than 60 mL/min/1.73 square meters End Stage Renal Disease: Less than 15 mL/min/1.73 square meters Performed By: #### C MP, ADIFF, GFR, LIPID, ANEU, CBC #### [address] [address] .NEUABSon 02-11-2024 Neutrophil, Absolute 2.8 10 3/mcL Normal 2.3-8.1 [facility] Comment on above: Performed By: #### C MP, ADIFF, GFR, LIPID, ANEU, CBC #### [address] [address] CBCon 02-11-2024 Erythrocyte distribution width (RBC) [Ratio] 13.3 % Normal 11.5-15.5 [facility] Comment on above: Performed By: #### C MP, ADIFF, GFR, LIPID, ANEU, CBC #### [address] [address] Hematocrit (Bld) [Volume fraction] 43.8 % Normal 40.0-52.0 [facility] Comment on above: Performed By: #### C MP, ADIFF, GFR, LIPID, ANEU, CBC #### [place] [address] Hgb 14.6 G/dL Normal 13.0-17.5 [facility] Comment on above: Performed By: #### C MP, ADIFF, GFR, LIPID, ANEU, CBC #### [place] [address] MCH (RBC) [Entitic mass] 31.9 pg Normal 27.0-33.0 [facility] Comment on above: Performed By: #### C MP, ADIFF, GFR, LIPID, ANEU, CBC #### [place] [address] MCHC 33.4 G/dL Normal 32.0-36.0 [facility] Comment on above: Performed By: #### C MP, ADIFF, GFR, LIPID, ANEU, CBC #### [place] [address] MCV (RBC) [Entitic vol] 95.5 fL Normal 81.0-100.0 [facility] Comment on above: Performed By: #### C MP, ADIFF, GFR, LIPID, ANEU, CBC #### [place] [address] Platelet 337 10 3/mcL Normal 150-450 [facility] Comment on above: Performed By: #### C MP, ADIFF, GFR, LIPID, ANEU, CBC #### [place] [address] Platelet mean volume (Bld) [Entitic vol] 7.4 fL Normal 6.4-10.5 [facility] Comment on above: Performed By: #### C MP, ADIFF, GFR, LIPID, ANEU, CBC #### [place] [address] RBC 4.59 10 6/mcL Normal 4.50-6.00 [facility] Comment on above: Performed By: #### C MP, ADIFF, GFR, LIPID, ANEU, CBC #### [address] [address] WBC 7.5 10 3/mcL Normal 4.5-10.8 [facility] Comment on above: Performed By: #### C MP, ADIFF, GFR, LIPID, ANEU, CBC #### [address] [address] CMPon 02-11-2024 Albumin Level 4.6 G/dL Normal 3.5-5.0 [facility] Comment on above: Performed By: #### C MP, ADIFF, GFR, LIPID, ANEU, CBC #### [address] [address] Albumin/Globulin [Mass ratio] 1.5 {ratio} Normal 1.1-2.5 [facility] Comment on above: Performed By: #### C MP, ADIFF, GFR, LIPID, ANEU, CBC #### [address] [address] ALP [Catalytic activity/Vol] 97 U/L Normal 40-135 [facility] Comment on above: Performed By: #### C MP, ADIFF, GFR, LIPID, ANEU, CBC #### [address] [address] ALT [Catalytic activity/Vol] 30 U/L Normal 16-63 [facility] Comment on above: Performed By: #### C MP, ADIFF, GFR, LIPID, ANEU, CBC #### [address] [address] AST [Catalytic activity/Vol] 20 U/L Normal 10-40 [facility] Comment on above: Performed By: #### C MP, ADIFF, GFR, LIPID, ANEU, CBC #### [address] [address] Bili Total 0.4 mg/dL Normal 0.2-1.0 [facility] Comment on above: Result Comment: Use of this assay is not recommended for patients undergoing treatment with eltrombopag due to the potential for falsely elevated results. Performed By: #### C MP, ADIFF, GFR, LIPID, ANEU, CBC #### [address] [address] BUN/Creatinine Ratio 17 ratio Normal 7-27 [facility] Comment on above: Performed By: #### C MP, ADIFF, GFR, LIPID, ANEU, CBC #### [address] [address] Calcium [Mass/Vol] 9.5 mg/dL Normal 8.4-10.2 [facility] Comment on above: Performed By: #### C MP, ADIFF, GFR, LIPID, ANEU, CBC #### [address] [address] Chloride [Moles/Vol] 100 mmol/L Normal 98-107 [facility] Comment on above: Performed By: #### C MP, ADIFF, GFR, LIPID, ANEU, CBC #### [place] [address] CO2 [Moles/Vol] 25 mmol/L Normal 22-29 [facility] Comment on above: Performed By: #### C MP, ADIFF, GFR, LIPID, ANEU, CBC #### [address] [address] Creatinine [Mass/Vol] 1.27 mg/dL Normal 0.70-1.30 [facility] Comment on above: Result Comment: Test ing performed on Siemens Dimension EXL analyzer using a modified kinetic Christie technique. Performed By: #### C MP, ADIFF, GFR, LIPID, ANEU, CBC #### [address] [address] Electrolyte Balance 15.0 mEq/L Normal 4.0-15.0 [facility] Comment on above: Performed By: #### C MP, ADIFF, GFR, LIPID, ANEU, CBC #### [address] [address] Globulin 3.0 G/dL Normal [facility] Comment on above: Performed By: #### C MP, ADIFF, GFR, LIPID, ANEU, CBC #### [address] [address] Glucose [Mass/Vol] 117 mg/dL High 70-105 [facility] Comment on above: Performed By: #### C MP, ADIFF, GFR, LIPID, ANEU, CBC #### [address] [address] Potassium [Moles/Vol] 4.6 mmol/L Normal 3.5-5.1 [facility] Comment on above: Performed By: #### C MP, ADIFF, GFR, LIPID, ANEU, CBC #### [address] [address] Sodium [Moles/Vol] 140 mmol/L Normal 136-145 [facility] Comment on above: Performed By: #### C MP, ADIFF, GFR, LIPID, ANEU, CBC #### [address] [address] Total Protein 7.6 G/dL Normal 6.4-8.2 [facility] Comment on above: Performed By: #### C MP, ADIFF, GFR, LIPID, ANEU, CBC #### [address] [address] Urea nitrogen [Mass/Vol] 21 mg/dL High 7-18 [facility] Comment on above: Performed By: #### C MP, ADIFF, GFR, LIPID, ANEU, CBC #### [address] [address] LABORATORYOrdered By: SYSTEM SYSTEM on 02-11-2024 Albumin BCP dye [Mass/Vol] 4.6 G/dL Normal 3.5 - 5.0 G/dL AO ADM SS Albumin/Globulin [Mass ratio] 1.5 {ratio} Normal 1.1 - 2.5 ratio AO ADM SS ALP [Catalytic activity/Vol] 97 U/L Normal 40 - 135 U/L AO ADM SS ALT With P-5'-P [Catalytic activity/Vol] 30 U/L Normal 16 - 63 U/L AO ADM SS AST With P-5'-P [Catalytic activity/Vol] 20 U/L Normal 10 - 40 U/L AO ADM SS Basophils (Bld) [#/Vol] 0.1 103/mcL Normal 0.0 - 0.2 10^3/mcL AO Workflow SS Basophils/100 WBC (Bld) 0.8 % Normal 0.0 - 2.5 % AO Workflow SS Bilirubin [Mass/Vol] 0.4 mg/dL Normal 0.2 - 1 .0 mg/dL AO ADM SS Comment on above: Interpretive Data: U se of this assay is not recommended for patients undergoing treatment with eltrombopag due to the potential for falsely elevated results. Calcium [Mass/Vol] 9.5 mg/dL Normal 8.4 - 10. 2 mg/dL AO ADM SS Chloride [Moles/Vol] 100 mmol/L Normal 98 - 10 7 mmol/L AO ADM SS CO2 [Moles/Vol] 25 mmol/L Normal 22 - 29 mmol/L AO ADM SS Creatinine [Mass/Vol] 1.27 mg/dL Normal 0.70 - 1.30 mg/dL AO ADM SS Comment on above: Interpretive Data: T esting performed on Siemens Dimension EXL analyzer using a modified kinetic Christie technique. Electrolyte Balance 15.0 mEq/L Normal 4.0 - 15 .0 mEq/L AO ADM SS Eosinophil, Absolute 0.2 103/mcL Normal 0.0 - 0 .7 10^3/mcL AO Workflow SS Eosinophils/100 WBC (Bld) 2.0 % Normal 0.0 - 7.0 % AO Workflow SS Erythrocyte distribution width (RBC) [Ratio] 13.3 % Normal 11.5 - 15.5 % AO Workflow SS GFR/1.73 sq M.predicted among blacks MDRD (S/P/Bld) [Vol rate/Area] 73 ml/min/1.73sqm Invalid Interpretation Code AO Chemistry S Comment on above: Interpretive Data: GFR Population mean for , Non- Americans Ages 20-29 = 116 mL/min/1.73 sq.m. Ages 30-39 = 107 mL/min/1.73 sq.m. Ages 40-49 = 99 mL/min/1.73 sq.m. Ages 50-59 = 93 mL/min/1.73 sq.m. Ages 60-69 = 85 mL/min/1.73 sq.m. Ages 70+ = 75 mL/min/1.73 sq.m. Chronic Kidney Disease: Less than 60 mL/min/1.73 square meters End Stage Renal Disease: Less than 15 mL/min/1.73 square meters GFR/1.73 sq M.predicted among non-blacks MDRD (S/P/Bld) [Vol rate/Area] 61 ml/min/1.73sqm Invalid Interpretation Code AO Chemistry S Comment on above: Interpretive Data: GFR Population mean for , Non- Americans Ages 20-29 = 116 mL/min/1.73 sq.m. Ages 30-39 = 107 mL/min/1.73 sq.m. Ages 40-49 = 99 mL/min/1.73 sq.m. Ages 50-59 = 93 mL/min/1.73 sq.m. Ages 60-69 = 85 mL/min/1.73 sq.m. Ages 70+ = 75 mL/min/1.73 sq.m. Chronic Kidney Disease: Less than 60 mL/min/1.73 square meters End Stage Renal Disease: Less than 15 mL/min/1.73 square meters Globulin 3.0 G/dL Invalid Interpretation Code AO ADM SS Glucose [Mass/Vol] 117 mg/dL High 70 - 105 mg/dL AO ADM SS Hematocrit (Bld) [Volume fraction] 43.8 % Normal 40.0 - 52.0 % AO Workflow SS Hemoglobin (Bld) [Mass/Vol] 14.6 G/dL Normal 13.0 - 17.5 G/dL AO Workflow SS Lymphocytes (Bld) [#/Vol] 3.9 103/mcL Normal 0.9 - 4.3 10^3/mcL AO Workflow SS Lymphocytes/100 WBC (Bld) 51.5 % High 20.0 - 40.0 % AO Workflow SS MCH (RBC) [Entitic mass] 31.9 pg Normal 27.0 - 33.0 pg AO Workflow SS MCHC 33.4 G/dL Normal 32.0 - 36.0 G/dL AO Workflow SS MCV (RBC) [Entitic vol] 95.5 fL Normal 81.0 - 100.0 fL AO Workflow SS Monocytes (Bld) [#/Vol] 0.6 103/mcL Normal 0.1 - 1.4 10^3/mcL AO Workflow SS Monocytes/100 WBC (Bld) 8.0 % Normal 2.0 - 13.0 % AO Workflow SS Neutrophils (Bld) [#/Vol] 2.8 103/mcL Normal 2.3 - 8.1 10^3/mcL AO Workflow SS Neutrophils/100 WBC (Bld) 37.7 % Low 50.0 - 75.0 % AO Workflow SS Platelet mean volume (Bld) [Entitic vol] 7.4 fL Normal 6.4 - 10.5 fL AO Workflow SS Platelets (Bld) [#/Vol] 337 103/mcL Normal 150 - 450 10^3/mcL AO Workflow SS Potassium [Moles/Vol] 4.6 mmol/L Normal 3.5 - 5.1 mmol/L AO ADM SS Protein [Mass/Vol] 7.6 G/dL Normal 6.4 - 8.2 G/dL AO ADM SS RBC (Bld) [#/Vol] 4.59 106/mcL Normal 4.50 - 6.0 0 10^6/mcL AO Workflow SS Sodium [Moles/Vol] 140 mmol/L Normal 136 - 145 mmol/L AO ADM SS Urea nitrogen [Mass/Vol] 21 mg/dL High 7 - 18 mg/dL AO ADM SS Urea nitrogen/Creatinine [Mass ratio] 17 ratio Normal 7 - 27 ratio AO ADM SS WBC (Bld) [#/Vol] 7.5 103/mcL Normal 4.5 - 10.8 10^3/mcL AO Workflow SS LABORATORYOrdered By: Herminio Coleman on 02-11-2024 Cholesterol [Mass/Vol] 261 mg/dL High 0 - 200 mg/dL AO ADM SS Comment on above: Interpretive Data: C holesterol Reference Interval: Less than 200 Desirable 200-239 Borderline high risk 240 and above High risk Cholesterol in HDL [Mass/Vol] 60 mg/dL Normal 40 - 60 mg/dL AO ADM SS Cholesterol in LDL [Mass/Vol] 186 mg/dL High 0 - 130 mg/dL AO ADM SS Triglyceride [Mass/Vol] 75 mg/dL Normal 0 - 150 mg/dL AO ADM SS Comment on above: Interpretive Data: T riglyceride Reference Interval: Less than 150 Normal 150-199 Borderline high risk 200-499 High risk 500 or higher Very high risk LIPIDon 02-11-2024 Cholesterol [Mass/Vol] 261 mg/dL High 0-200 [facility] Comment on above: Result Comment: Chol esterol Reference Interval: Less than 200 Desirable 200-239 Borderline high risk 240 and above High risk Performed By: #### C MP, ADIFF, GFR, LIPID, ANEU, CBC #### [place] [id number] [place], [place] [address] Cholesterol in HDL [Mass/Vol] 60 mg/dL Normal 40-60 [facility] Comment on above: Performed By: #### C MP, ADIFF, GFR, LIPID, ANEU, CBC #### [place] [id number] Cholesterol in LDL [Mass/Vol] 186 mg/dL High 0-130 [facility] Comment on above: Performed By: #### C MP, ADIFF, GFR, LIPID, ANEU, CBC #### [place] [id number] [place] [id number] Triglyceride [Mass/Vol] 75 mg/dL Normal 0-150 [facility] Comment on above: Result Comment: Trig lyceride Reference Interval: Less than 150 Normal 150-199 Borderline high risk 200-499 High risk 500 or higher Very high risk Performed By: #### C MP, ADIFF, GFR, LIPID, ANEU, CBC #### [place] [id number] [place], [place] [address] CT SINUSon 07-15-2023 CT SINUS ORIGINAL EXAMINATION: CT OF THE SINUS WITHOUT CONTRAST07/15/2023 3:22 pm TECHNIQUE: CT of the sinuses was performed without the administration of intravenous contrast. Multiplanar reformatted images are provided for review. Automated exposure control, iterative reconstruction, and/or weight based adjustment of the mA/kV was utilized to reduce the radiation dose to as low as reasonably achievable. COMPARISON: CT head 01/24/2021 HISTORY: ORDERING SYSTEM PROVIDED HISTORY: Reason for Exam: Refractory sinus symptoms and headaches, trial 3 antibiotics Pt reports frequent dizziness and sinus pressure for the past 3-4 months. Has had numerus sinus infections in the past. FINDINGS: Right: The frontal sinus is clear. The frontal outflow tract is patent. There is no significant mucosal thickening within the ethmoid air cells. The maxillary sinus is predominantly clear with a tiny focus of mucosal thickening anteriorly. The maxillary outflow tract is patent. The sphenoid sinus is clear. The sphenoid ostium and sphenoethmoidal recess are clear. Left: The frontal sinus is clear. The frontal outflow tract is patent. There is no significant mucosal thickening within the ethmoid air cells. Minimal mucosal thickening in the maxillary sinus. The maxillary outflow tract is patent. The sphenoid sinus is clear. The sphenoid ostium and sphenoethmoidal recess are clear. There are no air-fluid levels or osteoneogenesis. No nasal masses. Left cliff bullosa. The anterior portion the septum is deviated towards the right. No spur. The retroantral and premaxillary fat are preserved. The cribriform plate and lateral lamella are unremarkable. The intersphenoid sinus septum inserts near the right carotid canal. The petrous apices are aerated. IMPRESSION: Minimal maxillary sinus mucosal thickening without evidence of acute or chronic sinusitis. I have personally reviewed the images of this examination and agree with the resident's findings and interpretation. Interpreted by: Poppy Foss MD Preliminary Report By: Nina Jose Electronically signed By Poppy Foss MD Dictated Date: 07/15/2023 3:49:58 PM Prelim Date: 07/15/2023 4:36:46 PM Sign Date: 07/15/2023 4:36:46 PM Ordering Provider: TIFFANY ONTIVEROS [facility]) Final Surgical Pathology Rep [facility] 04-09-2023 Final Surgical Pathology Report . Pathology Reports Accession: Collected Date/Time: Received Date/Time: Pathologist: [id number] 04/05/2023 15:01 EST 04/08/2023 08:29 EST LAUREL CHILDERS MD Final Surgical Pathology Report DIAGNOSIS: PROXIMAL ASCENDING COLON POLYP: - COLON MUCOSA WITH PROMINENT BENIGN LYMPHOID AGGREGATE CLINICAL INFORMATION: SCREENING Procedure: COLONOSCOPY WITH POLYPECTOMY Preoperative diagnosis: SCREENING Postoperative diagnosis: SCREENING SPECIMEN: A PROXIMAL ASCENDING COLON POLYP 2 MM GROSS DESCRIPTION: All parts labelled with patient name and [id number] Received in formalin labeled proximal ascending colon polyp 2 mm is 1 muniz tissue fragment measuring 0.5 x 0.3 cm in greatest dimension. TS-1 Maribel Edmonds, Grossing End Maker/ Dr. Ranulfo Antoine, Pathologist Dictated by Maribel Edmonds MICROSCOPIC DESCRIPTION: The microscopic examination is performed, except in the case of Gross Only. Electronically Signed by Pathology Report verified by [facility] LAUREL CHILDERS Sign out Date: 04/09/2023 12:27 Performing Lab: [facility], [address] [place] [address] Pathology Dept Disclaimer If ancillary studies were utilized, the following Laboratory Developed Test (LDT) disclaimer will apply: Under CLIA requirements, [facility] is qualified to perform high complexity testing. For all ancillary stains, positive and negative controls stain appropriately. Performance characteristics of immunohistochemical and chromogenic in-situ hybridization tests have been determined by [facility]. These tests are used for clinical purposes, They should not be regarded as investigational or for research. Normal [facility] ([place]) .Auto Diffon 01-26-2023 Basophil, Absolute 0.0 10 3/mcL Normal 0.0-0.2 [facility] ([place]) Comment on above: Performed By: #### C MP, CBC, PSA, ANEU, ADIFF, LIPID, GFR #### [address] [address] Basophils/100 WBC (Bld) 0.7 % Normal 0.0-2.5 [facility] ([place]) Comment on above: Performed By: #### C MP, CBC, PSA, ANEU, ADIFF, LIPID, GFR #### [address] [address] Eosinophil, Absolute 0.1 10 3/mcL Normal 0.0-0.4 [facility] ([place]) Comment on above: Performed By: #### C MP, CBC, PSA, ANEU, ADIFF, LIPID, GFR #### [address] [address] Eosinophils/100 WBC (Bld) 1.7 % Normal 0.0-7.0 [facility] [place] ([place]) Comment on above: Performed By: #### C MP, CBC, PSA, ANEU, ADIFF, LIPID, GFR #### [address] [address] Lymphocyte, Absolute 2.7 10 3/mcL Normal 0.8-3.9 [facility] ([place]) Comment on above: Performed By: #### C MP, CBC, PSA, ANEU, ADIFF, LIPID, GFR #### [address] [address] Lymphocytes/100 WBC (Bld) 48.5 % Normal 10.0-50.0 [facility] ([place]) Comment on above: Performed By: #### C MP, CBC, PSA, ANEU, ADIFF, LIPID, GFR #### [address] [address] Monocyte, Absolute 0.5 10 3/mcL Normal 0.2-1.0 [facility] ([place]) Comment on above: Performed By: #### C MP, CBC, PSA, ANEU, ADIFF, LIPID, GFR #### [address] [address] Monocytes/100 WBC (Bld) 8.2 % Normal 1.7-13.0 [facility] ([place]) Comment on above: Performed By: #### C MP, CBC, PSA, ANEU, ADIFF, LIPID, GFR #### [address] [address] Neutrophils/100 WBC (Bld) 40.9 % Normal 37.0-80.0 [facility] ([place]) Comment on above: Performed By: #### C MP, CBC, PSA, ANEU, ADIFF, LIPID, GFR #### [address] [address] .GFRon 01-26-2023 GFR 88 ml/min/1.73sqm Normal [facility] ([place]) Comment on above: Result Comment: GFR Population mean for , Non- Americans Ages 20-29 = 116 mL/min/1.73 sq.m. Ages 30-39 = 107 mL/min/1.73 sq.m. Ages 40-49 = 99 mL/min/1.73 sq.m. Ages 50-59 = 93 mL/min/1.73 sq.m. Ages 60-69 = 85 mL/min/1.73 sq.m. Ages 70+ = 75 mL/min/1.73 sq.m. Chronic Kidney Disease: Less than 60 mL/min/1.73 square meters End Stage Renal Disease: Less than 15 mL/min/1.73 square meters Performed By: #### C MP, CBC, PSA, ANEU, ADIFF, LIPID, GFR #### [address] [address] GFR Non- 73 ml/min/1.73sqm Normal [facility] ([place]) Comment on above: Result Comment: GFR Population mean for , Non- Americans Ages 20-29 = 116 mL/min/1.73 sq.m. Ages 30-39 = 107 mL/min/1.73 sq.m. Ages 40-49 = 99 mL/min/1.73 sq.m. Ages 50-59 = 93 mL/min/1.73 sq.m. Ages 60-69 = 85 mL/min/1.73 sq.m. Ages 70+ = 75 mL/min/1.73 sq.m. Chronic Kidney Disease: Less than 60 mL/min/1.73 square meters End Stage Renal Disease: Less than 15 mL/min/1.73 square meters Performed By: #### C MP, CBC, PSA, ANEU, ADIFF, LIPID, GFR #### [address] [address] .NEUABSon 01-26-2023 Neutrophil, Absolute 2.3 10 3/mcL Low 2.9-6.2 [facility] ([place]) Comment on above: Performed By: #### C MP, CBC, PSA, ANEU, ADIFF, LIPID, GFR #### [address] [address] CBCon 01-26-2023 Erythrocyte distribution width (RBC) [Ratio] 13.1 % Normal 11.5-14.5 [facility] ([place]) Comment on above: Performed By: #### C MP, CBC, PSA, ANEU, ADIFF, LIPID, GFR #### [address] [address] Hematocrit (Bld) [Volume fraction] 40.0 % Low 42.0-52.0 [facility] ([place]) Comment on above: Performed By: #### C MP, CBC, PSA, ANEU, ADIFF, LIPID, GFR #### [address] [address] Hgb 13.6 G/dL Low 14.0-18.0 [facility] ([place]) Comment on above: Performed By: #### C MP, CBC, PSA, ANEU, ADIFF, LIPID, GFR #### [address] [address] MCH (RBC) [Entitic mass] 31.3 pg High 27.0-31.2 [facility] ([place]) Comment on above: Performed By: #### C MP, CBC, PSA, ANEU, ADIFF, LIPID, GFR #### [place] [address] MCHC 34.0 G/dL Normal 31.8-35.4 [facility] ([place]) Comment on above: Performed By: #### C MP, CBC, PSA, ANEU, ADIFF, LIPID, GFR #### [address] [address] MCV (RBC) [Entitic vol] 92.1 fL Normal 80.0-94.0 [facility] ([place]) Comment on above: Performed By: #### C MP, CBC, PSA, ANEU, ADIFF, LIPID, GFR #### [address] [address] Platelet 279 10 3/mcL Normal 130-400 [facility] ([place]) Comment on above: Performed By: #### C MP, CBC, PSA, ANEU, ADIFF, LIPID, GFR #### [address] [address] Platelet mean volume (Bld) [Entitic vol] 6.8 fL Low 7.4-10.4 [facility] ([place]) Comment on above: Performed By: #### C MP, CBC, PSA, ANEU, ADIFF, LIPID, GFR #### [address] [address] RBC 4.34 10 6/mcL Normal 4.04-6.13 [facility] ([place]) Comment on above: Performed By: #### C MP, CBC, PSA, ANEU, ADIFF, LIPID, GFR #### [address] [address] WBC 5.6 10 3/mcL Normal 4.6-10.8 [facility] ([place]) Comment on above: Performed By: #### C MP, CBC, PSA, ANEU, ADIFF, LIPID, GFR #### [address] [address] CMPon 01-26-2023 Albumin Level 4.3 G/dL Normal 3.5-5.0 [facility] ([place]) Comment on above: Performed By: #### C MP, CBC, PSA, ANEU, ADIFF, LIPID, GFR #### [address] [address] Albumin/Globulin [Mass ratio] 1.4 {ratio} Normal 1.1-2.5 [facility] ([place]) Comment on above: Performed By: #### C MP, CBC, PSA, ANEU, ADIFF, LIPID, GFR #### [address] [address] ALP [Catalytic activity/Vol] 80 U/L Normal 40-135 [facility] ([place]) Comment on above: Performed By: #### C MP, CBC, PSA, ANEU, ADIFF, LIPID, GFR #### [address] [address] ALT [Catalytic activity/Vol] 30 U/L Normal 16-63 [facility] ([place]) Comment on above: Performed By: #### C MP, CBC, PSA, ANEU, ADIFF, LIPID, GFR #### [address] [address] AST [Catalytic activity/Vol] 17 U/L Normal 10-40 [facility] ([place]) Comment on above: Performed By: #### C MP, CBC, PSA, ANEU, ADIFF, LIPID, GFR #### [address] [address] Bili Total 0.5 mg/dL Normal 0.2-1.0 [facility] ([place]) Comment on above: Result Comment: Use of this assay is not recommended for patients undergoing treatment with eltrombopag due to the potential for falsely elevated results. Performed By: #### C MP, CBC, PSA, ANEU, ADIFF, LIPID, GFR #### [address] [address] BUN/Creatinine Ratio 17 ratio Normal 7-27 [facility] ([place]) Comment on above: Performed By: #### C MP, CBC, PSA, ANEU, ADIFF, LIPID, GFR #### [address] [address] Calcium [Mass/Vol] 9.6 mg/dL Normal 8.4-10.2 [facility] ([place]) Comment on above: Performed By: #### C MP, CBC, PSA, ANEU, ADIFF, LIPID, GFR #### [address] [address] Chloride [Moles/Vol] 100 mmol/L Normal 98-107 [facility] ([place]) Comment on above: Performed By: #### C MP, CBC, PSA, ANEU, ADIFF, LIPID, GFR #### [address] [address] CO2 [Moles/Vol] 30 mmol/L High 22-29 [facility] ([place]) Comment on above: Performed By: #### C MP, CBC, PSA, ANEU, ADIFF, LIPID, GFR #### [address] [address] Creatinine [Mass/Vol] 1.09 mg/dL Normal 0.70-1.30 [facility] ([place]) Comment on above: Performed By: #### C MP, CBC, PSA, ANEU, ADIFF, LIPID, GFR #### [address] [address] Electrolyte Balance 6.0 mEq/L Normal 4.0-15.0 [facility] ([place]) Comment on above: Performed By: #### C MP, CBC, PSA, ANEU, ADIFF, LIPID, GFR #### [address] [address] Globulin 3.1 G/dL Normal [facility] ([place]) Comment on above: Performed By: #### C MP, CBC, PSA, ANEU, ADIFF, LIPID, GFR #### [address] [address] Glucose [Mass/Vol] 93 mg/dL Normal 70-105 [facility] ([place]) Comment on above: Performed By: #### C MP, CBC, PSA, ANEU, ADIFF, LIPID, GFR #### [address] [address] Potassium [Moles/Vol] 5.1 mmol/L Normal 3.5-5.1 [facility] ([place]) Comment on above: Performed By: #### C MP, CBC, PSA, ANEU, ADIFF, LIPID, GFR #### [address] [address] Sodium [Moles/Vol] 136 mmol/L Normal 136-145 [facility] ([place]) Comment on above: Performed By: #### C MP, CBC, PSA, ANEU, ADIFF, LIPID, GFR #### [address] [address] Total Protein 7.4 G/dL Normal 6.4-8.2 [facility] ([place]) Comment on above: Performed By: #### C MP, CBC, PSA, ANEU, ADIFF, LIPID, GFR #### [address] [address] Urea nitrogen [Mass/Vol] 19 mg/dL High 7-18 [facility] ([place]) Comment on above: Performed By: #### C MP, CBC, PSA, ANEU, ADIFF, LIPID, GFR #### [address] [address] LIPIDon 01-26-2023 Cholesterol [Mass/Vol] 219 mg/dL High 0-200 [facility] ([place]) Comment on above: Result Comment: Chol esterol Reference Interval: Less than 200 Desirable 200-239 Borderline high risk 240 and above High risk Performed By: #### C MP, CBC, PSA, ANEU, ADIFF, LIPID, GFR #### [address] [address] Cholesterol in HDL [Mass/Vol] 50 mg/dL Normal 40-60 [facility] ([place]) Comment on above: Performed By: #### C MP, CBC, PSA, ANEU, ADIFF, LIPID, GFR #### [address] [address] Cholesterol in LDL [Mass/Vol] 162 mg/dL High 0-130 [facility] ([place]) Comment on above: Performed By: #### C MP, CBC, PSA, ANEU, ADIFF, LIPID, GFR #### [address] [address] Triglyceride [Mass/Vol] 36 mg/dL Normal 0-150 [facility] ([place]) Comment on above: Result Comment: Trig lyceride Reference Interval: Less than 150 Normal 150-199 Borderline high risk 200-499 High risk 500 or higher Very high risk Performed By: #### C MP, CBC, PSA, ANEU, ADIFF, LIPID, GFR #### [address] [address] PSAon 01-26-2023 Prostate Specific Antigen 1.44 ng/mL Normal 0.00-4.00 [facility] ([place]) Comment on above: Performed By: #### C MP, CBC, PSA, ANEU, ADIFF, LIPID, GFR #### [address] [address] UAon 01-26-2023 Color (U) Yellow Normal [facility] ([place]) Comment on above: Performed By: #### U A #### [address] [address] Glucose (U) [Mass/Vol] Negative Normal Negative [facility] ([place]) Comment on above: Performed By: #### U A #### [address] [address] Ketones Ql (U) Negative Normal Negative [facility] ([place]) Comment on above: Performed By: #### U A #### [address] [address] UA Appear Clear Normal Clear [facility] ([place]) Comment on above: Performed By: #### U A #### [place] [id number] UA Blood Negative Normal Negative [facility] ([place]) Comment on above: Performed By: #### U A #### [place] [address] UA Leuk Est Negative Normal Negative [facility] ([place] Comment on above: Performed By: #### U A #### [place] [address] UA Nitrite Negative Normal Negative [facility] ([place] Comment on above: Performed By: #### U A #### [place] [address] UA pH 5.5 Normal 5.0 - 8.0 [facility] ([place]) Comment on above: Performed By: #### U A #### [place] [address] UA Protein Negative Normal Negative [facility] ([place] Comment on above: Performed By: #### U A #### [place] [address] UA Spec Grav 1.025 Normal 1.015-1.025 [facility] ([place]) Comment on above: Performed By: #### U A #### [place] [address] UA Specimen Type Clean Catch Normal [facility] ([place] Comment on above: Performed By: #### U A #### [place] [address] UA Urobilinogen 0.2 E.U./dL Normal 0.2-1.0 [facility] ([place] Comment on above: Performed By: #### U A #### [place] [address] Urobilinogen (U) [Mass/Vol] Negative Normal Negative [facility] ([place] Comment on above: Performed By: #### U A #### [place] [address] [place], [place] [address] Urgent Care Visit Reporton 1 Urgent Care Visit Report [facility] [address] [place] [address] OFFICE VISIT Date of Service: 01/29/22 MR#: [id number] Acct: [id number] Name: TRINA AGUILAR Rep #: [id number] : 1975 Provider: ODIN almonte Age/Sex: 46/M Location: [facility] [place] [facility] Status: Signed Intake Vital Signs 01/29/22 13:38 BP 150/80 H Blood Pressure Location Lt brachial Position Sitting Respiration 14 Pulse 80 Pulse Source Monitor Temp 98.4 F Temp Source Temporal Pulse Oximetry (%) 97 Oxygen Delivery Method room air Intake Visit Reasons: 1 W FU Allergies morphine Allergy (Verified 09/11/19 09:36) Swelling [facility] Medical History (Updated 01/24/22 @ 10:30 by Gerard NEWBY, ODIN) Acute lumbar myofascial strain Lumbar radiculopathy, acute Social History Smoking Status: Never smoker HPI HPI Details: TRINA AGUILAR, is a 46 M who presents to the office today for follow up status post right low back pain injury occurring while at work on 01/23/2022 patient so states.??? Patient notes on of date of injury lifting a full 5 gallon bucket, though bucket was stuck to the floor/did not move and as result felt a, pop in back as patient describes.??? He noted immediate moderate aching pain to the right low back region which is progressively worsened since, noting moderate severe aching pain at this time.??? Intermittent radiating symptoms appreciated to the right inguinal/medial thigh regions upon questioning which has since resolved since his last follow-up here.??? Low back pain is still aggravated with flexion/extension at the waist and with prolonged sitting.??? Symptoms are relieved significantly with standing. Prednisone and Flexeril helping, though [id number] Tylenol with minimal or no benefit.??? No caudal complaints; no abdominal complaints or bilateral hip complaints and no nausea/vomiting or changes in color/character/freque ncy of urine and stool output.??? He has been tolerating current work restrictions well, requesting him his work hours extended to 8 hours a day. No other associated symptoms and no other alleviating/aggravatin g factors. ROS Const Constitutional: No other (As above) Exam Const General: cooperative, healthy appearing and no acute distress Nutritional Appearance: average body habitus Orientation: alert, awake and oriented x3 HENMT Head: normal to inspection Chest Chest palpation inspection: normal inspection of the chest Resp Effort Inspection: normal respiratory effort and able to speak in complete sentences Cardio Rate: regular rate Pulses: radial pulses present GI Inspection: normal to inspection Palpation: soft Musc Cervical Spine: normal cervical lordosis, cervical ROM normal and cervical muscular tenderness; No cervical spinal tenderness Thoracic/Lumbar Spine: thoracic and lumbar spine normal to inspection, straight leg raise negative bilaterally, pain with thoraco-lumbar ROM with forward flexion ( 45-60 degrees from midline), with lateral flexion to the right and with rotation to the right, paraspinal tenderness on the right greater than left (lower lumbar), no thoracic spinal tenderness and no lumbar spinal tenderness Skin General: no rashes or lesions noted Neuro General: patient alert, patient awake and patient oriented x3 Cognition: normal cognition Speech: speech normal Motor: muscle tone normal throughout Sensory Exam: no other (Right medial thigh paresthesias to palpation, patient so states) Psych Appearance: grossly normal Mental Status: mental status grossly normal Mood: congruent mood Affect: normal affect Speech and Movement: speech and movement normal Attitude: cooperative Thought Process: normal Thought Content: normal Judgment: judgment good Diagnoses Acute lumbar myofascial strain??? S39.012A Lumbar radiculopathy, acute??? M54.16 Assessment and Plan Assessment and Plan (1) Acute lumbar myofascial strain: ?Status:???Acute (2) Lumbar radiculopathy, acute: ?Status:???Acute ?Plan: See revised work restrictions as noted on today's [employer]. Home range of motion exercises as instructed to continue; to schedule physical therapy to evaluate and treat for first available appointment that it is approved. Prednisone and Flexeril as prescribed and Tylenol as needed to continue; hold all NSAIDs while on prednisone. Supportive measures as re-instructed today. Follow-up with the now clinic in 7 days for reevaluation, sooner should symptoms worsen or any other concerns develop. Patient and spouse both state acknowledging understanding all the above. This note was generated with [employer] dictation software. It may contain incorrect words, spelling, and punctuation that were not noted in checking the note before signin (more content not included)... Normal [facility] Lumbar Spine 2 or 3 Viewson 01-24-2022 Lumbar Spine 2 or 3 Views [facility] [address] [place] [address] Lumbar Spine 2 or 3 Views MR#: [id number] Acct: [id number] Name: TRINA AGUILAR Rep #: [id number] : 1975 M 46 From: Zakia franklin MD PCP: Care Physician,No Primary Status: DEP AMB Study: Lumbar Spine 2 or 3 Views Date of Exam: Exam# [id number] Ordering Dr: Gerard Lazcano HISTORY: injury. TECHNIQUE: XR Spine Lumbar 2 or 3 Views. COMPARISON: CT 08/25/2019. FINDINGS: VERTEBRAE: Vertebral body heights preserved. Posterior elements appear intact. ALIGNMENT: No significant anterior or posterior subluxation. INTERVERTEBRAL DISCS: Very mild L5-S1 intervertebral disc space narrowing. SOFT TISSUES: Moderate stool in the colon. RAD/Lumbar Spine 2 or 3 Views IMPRESSION: No acute fracture or dislocation identified in the lumbar spine. Electronically Signed: Zakia Hodges MD at 10:04 EDT , CC: ODIN Lazcano; No Primary Care Physician Rfid Technician: Signed Normal [facility] Office Visit Reporton 2021 Office Visit Report [facility] [address] [place] [address] OFFICE VISIT Date of Service: 01/24/22 MR#: [id number] Acct: [id number] Patient: TRINA AGUILAR Rep #: [id number] : 1975 Provider: ODIN almonte Age/Sex: 46/M Location: [facility] [place] Status: Signed Intake Intake Visit Reasons: POST ACCIDENT Allergies morphine Allergy (Verified 09/11/19 09:36) Swelling Office Procedures [facility] Billing Sheet Testing Post-Accident Non-DOT Breath Alcohol Test: Yes Post-Accident NON-DOT Drug Screen in [facility]: Yes 01/24/22 1031 Date Gerard NEWBY Cosigner Signature: Date (if applicable) CC: Normal [facility] Urgent Care Visit Reporton 1 Urgent Care Visit Report [facility] [address] [place] [address] OFFICE VISIT Date of Service: 01/24/22 MR#: [id number] Acct: [id number] Name: TRINA AGUILAR Rep #: [id number] : 1975 Provider: ODIN almonte Age/Sex: 46/M Location: [facility] [place] [facility] Status: Signed Intake Vital Signs 09/11/19 09:37 01/24/22 10:06 Height 5 ft 9 in 5 ft 9 in Weight: 165 lb BMI 24.3 BP 136/74 H Blood Pressure Location Lt brachial Position Sitting Respiration 16 Pulse 80 Pulse Source Monitor Temp 98.2 F Temp Source Temporal Pulse Oximetry (%) 98 Oxygen Delivery Method room air Intake Visit Reasons: LOWER BACK INJURY/ABDUL FOODS Allergies morphine Allergy (Verified 09/11/19 09:36) Swelling [facility] Medical History (Updated 01/24/22 @ 10:30 by ODIN Law[place]) Acute lumbar myofascial strain Lumbar radiculopathy, acute Social History Smoking Status: Never smoker HPI HPI Details: TRINA AGUILAR, is a 46 M who presents to the office today for initial evaluation status post right low back pain injury occurring while at work on 01/23/2022 patient so states. Placement of date of injury lifting a full 5 gallon bucket, though bucket was stuck to the floor/did not move and as result felt a, pop in back as patient describes. He noted immediate moderate aching pain to the right low back region which is progressively worsened since, noting moderate severe aching pain at this time. Intermittent radiating symptoms appreciated to the right inguinal/medial thigh regions upon questioning. Pain is aggravated with flexion/extension at the waist and with prolonged sitting. Symptoms are relieved minimally with standing with mild flexion and shifting body weight predominantly onto left leg. PMH NC, though does admit going to chiropractor on a weekly basis for OMT though did not specify a prior injury. Ccjn-eic-jzmqlvx ibuprofen with minimal or no benefit. No caudal complaints; no abdominal complaints or bilateral hip complaints and no nausea/vomiting or changes in color/character/freque ncy of urine and stool output. No other associated symptoms and no other alleviating/aggravatin g factors. ROS Const Constitutional: No other (As above) Exam Const General: cooperative, healthy appearing and no acute distress Nutritional Appearance: average body habitus Orientation: alert, awake and oriented x3 HENMT Head: normal to inspection Chest Chest palpation inspection: normal inspection of the chest Resp Effort Inspection: normal respiratory effort and able to speak in complete sentences Cardio Rate: regular rate Pulses: radial pulses present GI Inspection: normal to inspection Palpation: soft Musc Cervical Spine: normal cervical lordosis, cervical ROM normal and cervical muscular tenderness; No cervical spinal tenderness Thoracic/Lumbar Spine: thoracic and lumbar spine normal to inspection, straight leg raise negative bilaterally, pain with thoraco-lumbar ROM with forward flexion ( 30 degrees from midline), with lateral flexion to the right and with rotation to the right, paraspinal tenderness on the right greater than left (lower lumbar), no thoracic spinal tenderness and no lumbar spinal tenderness Skin General: no rashes or lesions noted Neuro General: patient alert, patient awake and patient oriented x3 Cognition: normal cognition Speech: speech normal Motor: muscle tone normal throughout Sensory Exam: no other (Right medial thigh paresthesias to palpation, patient so states) Psych Appearance: grossly normal Mental Status: mental status grossly normal Mood: congruent mood Affect: normal affect Speech and Movement: speech and movement normal Attitude: cooperative Thought Process: normal Thought Content: normal Judgment: judgment good Coding Level of Care Code Off vis,new,level 4 Diagnoses Acute lumbar myofascial strain S39.012A Lumbar radiculopathy, acute M54.16 Assessment and Plan Assessment and Plan (1) Acute lumbar myofascial strain: Status: Acute (2) Lumbar radiculopathy, acute: Status: Acute Plan: Lumbar radiographs taken today reveal no acute osseous pathology or listhesis per my review, pending radiologist interpretation time patient discharged. See work restrictions as noted on today's [employer]. Home range of motion exercises as instructed today; see noncemented today for physical therapy to evaluate and treat. Prednisone and Flexeril as prescribed today; hold all NSAIDs while on prednisone. Supportive measures as instructed today, including taking Tylenol as needed for symptomatic relief. Follow-up with the now clinic in 5 days for reevaluation, sooner should symptoms worsen or any other concerns develop. Patient and spouse both state acknowledging understanding all the above. (more content not included)... Normal [facility] Vital Signs Date Time Vital Sign Value Performing Clinician Faci rachelle 04-05-2023 12:49-0500 Diastolic Blood Pressure Non-Invasive 73 mm[Hg] DR AWA VILLAGOMEZ MD [facility] 04-05-2023 12:49-0500 Heart rate 70 /min DR AWA VILLAGOMEZ MD [facility] 04-05-2023 12:49-0500 Respiratory rate 14 /min DR AWA VILLAGOMEZ MD [facility] 04-05-2023 12:49-0500 Systolic Blood Pressure Non-Invasive 117 mm[Hg] DR AWA VILLAGOMEZ MD [facility] 04-05-2023 12:44-0500 Diastolic Blood Pressure Non-Invasive 67 mm[Hg] DR AWA VILLAGOMEZ MD [facility] 04-05-2023 12:44-0500 Heart rate 66 /min DR AWA VILLAGOMEZ MD [facility] 04-05-2023 12:44-0500 Respiratory rate 16 /min DR AWA VILLAGOMEZ MD [facility] 04-05-2023 12:44-0500 Systolic Blood Pressure Non-Invasive 127 mm[Hg] DR AWA VILLAGOMEZ MD [facility] 04-05-2023 12:38-0500 Diastolic Blood Pressure Non-Invasive 68 mm[Hg] DR AWA VILLAGOMEZ MD [facility] 04-05-2023 12:38-0500 Heart rate 65 /min DR AWA VILLAGOMEZ MD [facility] 04-05-2023 12:38-0500 Respiratory rate 18 /min DR AWA VILLAGOMEZ MD [facility] 04-05-2023 12:38-0500 Systolic Blood Pressure Non-Invasive 109 mm[Hg] DR AWA VILLAGOMEZ MD [facility] 04-05-2023 12:26-0500 Body temperature 97.34 [degF] DR AWA VILLAGOMEZ MD [facility] 04-05-2023 12:25-0500 Respiratory Rate - Anes 0 br/min DR AWA VILLAGOMEZ MD [facility] 04-05-2023 12:20-0500 Respiratory Rate - Anes 21 br/min DR AWA VILLAGOMEZ MD [facility] 04-05-2023 12:15-0500 Respiratory Rate - Anes 41 br/min DR AWA VILLAGOMEZ MD [facility] 04-05-2023 10:49-[address] Cuff Size [address] AWA VILLAGOMEZ [facility] [facility] 04-05-2023 10:49-[address] AWA VILLAGOMEZ MD [facility] 04-05-2023 10:49-[address] AWA VILLAGOMEZ MD [facility] 04-05-2023 10:49-0500 Body height 175.[address] AWA VILLAGOMEZ MD [facility] 04-05-2023 10:49-0500 Body temperature 97.88 [degF] DR AWA VILLAGOMEZ MD [facility] 04-05-2023 10:49-0500 Body weight [address] AWA VILLAGOMEZ MD [facility] 04-05-2023 10:49-0500 Body weight 24.41 kg/m2 DR AWA VILLAGOMEZ MD [facility] 04-05-2023 10:49-0500 Heart rate 80 /min DR AWA VILLAGOMEZ MD [facility] Encounters Encounter Date Encounter Type Care Provider Facility Start: 03-06-2024 End: 03-06-2024 ambulatory TIFFANY ONTIVEROS CUSHION SEWER-CABLE TELEVISION TECHNICIAN Facility:[facility] Start: 03-06-2024 End: 03-06-2024 Patient encounter procedure TIFFANY ONTIVEROS CUSHION SEWER-CABLE TELEVISION TECHNICIAN [facility] Start: 02-11-2024 End: 02-11-2024 ambulatory TIFFANY ONTIVEROS CUSHION SEWER-CABLE TELEVISION TECHNICIAN Facility[facility] Start: 02-11-2024 End: 02-11-2024 Patient encounter procedure TIFFANY ONTIVEROS CUSHION SEWER-CABLE TELEVISION TECHNICIAN [facility] Start: 07-15-2023 End: 07-16-2023 ambulatory TIFFANY ONTIVEROS CUSHION SEWER-CABLE TELEVISION TECHNICIAN Facility:[facility] Start: 07-15-2023 End: 07-15-2023 Patient encounter procedure TIFFANY ONTIVEROS CUSHION SEWER-CABLE TELEVISION TECHNICIAN [facility] Start: 04-05-2023 End: 04-05-[address] AWA VILLAGOMEZ MD Facility:[facility] Start: 04-05-2023 End: 04-05-[address] AWA VILLAGOMEZ MD [facility] Start: 01-26-2023 End: 01-27-2023 ambulatory TIFFANY RAMA CUSHION SEWER-CABLE TELEVISION TECHNICIAN Facility:[facility] Start: 01-29-2022 End: 01-29-2022 ambulatory No Primary Care Physician Facility:[facility] Start: 01-24-2022 End: 01-24-2022 ambulatory No Primary Care Physician Facility:[facility] Procedures Date Procedure Procedure Detail Performing Clinician Start: 08-24-[address] AWA VILLAGOMEZ MD Start: 08-24-2019 Extracorporeal shock wave lithotripsy of calculus of kidney DR AWA VILLAGOMEZ MD Comment on above: RIGHT SIDE Tonsillectomy DR AWA MCGREGOR MD Immunizations Immunization Date Immunization Notes Care Provider [facility] 02-27-2018 influenza virus vaccine, unspecified formulation DR AWA VILLAGOMEZ MD [facility] Comment on above: Result Comment: [12/21] [facility] 02-15-2015 influenza virus vaccine, unspecified formulation DR AWA VILLAGOMEZ MD [facility] 02-11-2014 influenza virus vaccine, unspecified formulation DR AWA VILLAGOMEZ MD [facility] Payers Date Payer Category Payer Self-pay 2022 Unknown [id number] 2022 Unknown [id number] 1975 Unknown [id number] [id number] 1975 Unknown [id number] 2.16.8 [id number] 1975 Unknown [id number] 2.16.8 [id number] 1975 Unknown [id number] 2.16.8 [id number] 1975 Unknown [id number] 2.16.8 [id number] Unknown [id number] 2.16.8 [id number] Unknown [id number] 2.16.8 [id number] Unknown [id number] 2.16.8 [id number] Unknown [id number] 2.16.8 [id number] Social History Date Type Detail Facility Start: 12-31-2018 Tobacco smoking status Never s moked tobacco (finding) [facility] Comment on above: no smoke exposure Sex Assigned At Male [facility] Functional Status Date Assessment Result Facility 04-05-2023 Functional Status Standard Safety ID band on [facility] 04-05-2023 Functional Status Maintained [facility] Clinical Notes 04-05-2023 to 07-15-2023 Laboratory Note Date & Type Note Facility 07-15-2023 Note ORIGINAL EXAMINATION: CT OF THE SINUS WITHOUT CONTRAST07/15/2023 3:22 pm TECHNIQUE: CT of the sinuses was performed without the administration of intravenous contrast. Multiplanar reformatted images are provided for review. Automated exposure control, iterative reconstruction, and/or weight based adjustment of the mA/kV was utilized to reduce the radiation dose to as low as reasonably achievable. COMPARISON: CT head 01/24/2021 HISTORY: ORDERING SYSTEM PROVIDED HISTORY: Reason for Exam: Refractory sinus symptoms and headaches, trial 3 antibiotics Pt reports frequent dizziness and sinus pressure for the past 3-4 months. Has had numerus sinus infections in the past. FINDINGS: Right: The frontal sinus is clear. The frontal outflow tract is patent. There is no significant mucosal thickening within the ethmoid air cells. The maxillary sinus is predominantly clear with a tiny focus of mucosal thickening anteriorly. The maxillary outflow tract is patent. The sphenoid sinus is clear. The sphenoid ostium and sphenoethmoidal recess are clear. Left: The frontal sinus is clear. The frontal outflow tract is patent. There is no significant mucosal thickening within the ethmoid air cells. Minimal mucosal thickening in the maxillary sinus. The maxillary outflow tract is patent. The sphenoid sinus is clear. The sphenoid ostium and sphenoethmoidal recess are clear. There are no air-fluid levels or osteoneogenesis. No nasal masses. Left cliff bullosa. The anterior portion the septum is deviated towards the right. No spur. The retroantral and premaxillary fat are preserved. The cribriform plate and lateral lamella are unremarkable. The intersphenoid sinus septum inserts near the right carotid canal. The petrous apices are aerated. IMPRESSION: Minimal maxillary sinus mucosal thickening without evidence of acute or chronic sinusitis. I have personally reviewed the images of this examination and agree with the resident's findings and interpretation. Interpreted by: Poppy Foss MD Preliminary Report By: Nina Jose Electronically signed By Poppy Foss MD Dictated Date: 07/15/2023 3:49:58 PM Prelim Date: 07/15/2023 4:36:46 PM Sign Date: 07/15/2023 4:36:46 PM Ordering Provider: TIFFANY ONTIVEROS [facility] 05-02-2023 Evaluation + Plan note Future Scheduled TestsComplete Blood Count 05/02/23Lipid Profile 05/02/23 [facility] 04-05-2023 Hospital Discharg e instructions Patient Education 04/05/2023 13:00:48 Colon Polyps Colon Polyps Polyps are tissue growths inside the body. Polyps can grow in many places, including the large intestine (colon). A polyp may be a round bump or a mushroom-shaped growth. You could have one polyp or several. Most colon polyps are noncancerous (benign). However, some colon polyps can become cancerous over time. Finding and removing the polyps early can help prevent this. What are the causes? The exact cause of colon polyps is not known. What increases the risk? You are more likely to develop this condition if you: Have a family history of colon cancer or colon polyps. Are older than 50 or older than 45 if you are . Have inflammatory bowel disease, such as ulcerative colitis or Crohn's disease. Have certain hereditary conditions, such as: ?Familial adenomatous polyposis. ?Fregoso syndrome. ?Turcot syndrome. ?Peutz Jeghers syndrome. Are overweight. Smoke cigarettes. Do not get enough exercise. Drink too much alcohol. Eat a diet that is high in fat and red meat and low in fiber. Had childhood cancer that was treated with abdominal radiation. What are the signs or symptoms? Most polyps do not cause symptoms. If you have symptoms, they may include: Blood coming from your rectum when having a bowel movement. Blood in your stool. The stool may look dark red or black. Abdominal pain. A change in bowel habits, such as constipation or diarrhea. How is this diagnosed? This condition is diagnosed with a colonoscopy. This is a procedure in which a lighted, flexible scope is inserted into the anus and then passed into the colon to examine the area. Polyps are sometimes found when a colonoscopy is done as part of routine cancer screening tests. How is this treated? Treatment for this condition involves removing any polyps that are found. Most polyps can be removed during a colonoscopy. Those polyps will then be tested for cancer. Additional treatment may be needed depending on the results of testing. Follow these instructions at home: Lifestyle Maintain a healthy weight, or lose weight if recommended by your health care provider. Exercise every day or as told by your health care provider. Do not use any products that contain nicotine or tobacco, such as cigarettes and e-cigarettes. If you need help quitting, ask your health care provider. If you drink alcohol, limit how much you have: ?0 1 drink a day for women. ? 0 2 drinks a day for men. Be aware of how much alcohol is in your drink. In the [place] one drink equals one 12 oz bottle of beer (478 mL), one 5 oz glass of wine (148 mL), or one 1 oz shot of hard liquor (44 mL). Eating and drinking Eat foods that are high in fiber, such as fruits, vegetables, and whole grains. Eat foods that are high in calcium and vitamin D, such as milk, cheese, yogurt, eggs, liver, fish, and broccoli. Limit foods that are high in fat, such as fried foods and desserts. Limit the amount of red meat and processed meat you eat, such as hot dogs, sausage, henriquez, and lunch meats. General instructions Keep all follow-up visits as told by your health care provider. This is important. ?This includes having regularly scheduled colonoscopies. ?Talk to your health care provider about when you need a colonoscopy. Contact a health care provider if: You have new or worsening bleeding during a bowel movement. You have new or increased blood in your stool. You have a change in bowel habits. You lose weight for no known reason. Summary Polyps are tissue growths inside the body. Polyps can grow in many places, including the colon. Most colon polyps are noncancerous (benign), but some can become cancerous over time. This condition is diagnosed with a colonoscopy. Treatment for this condition involves removing any polyps that are found. Most polyps can be removed during a colonoscopy. This information is not intended to replace advice given to you by your health care provider. Make sure you discuss any questions you have with your health care provider. Document Released: 01/02/2005 Document Revised: 07/24/2018 Document Reviewed: 07/24/2018 [employer] Patient Education 2020 Printed Piece. 04/05/2023 13:00:42 Colonoscopy, Adult, Care After Colonoscopy, Adult, Care After This sheet gives you information about how to care for yourself after your procedure. Your health care provider may also give you more specific instructions. If you have problems or questions, contact your health care provider. What can I expect after the procedure? After the procedure, it is common to have: A small amount of blood in your stool for 24 hours after the procedure. Some gas. Mild abdominal cramping or bloating. Follow these instructions at home: General instructions For the first 24 hours after the procedure: ?Do not drive or use machinery. ?Do not sign important documents. ?Do not drink alcohol. ?Do your regular daily activities at a slower pace than normal. ?Eat soft, knpt-ms-mxzohw foods. Take sawx-kna-gbauhdb or prescription medicines only as told by your health care provider. Relieving cramping and bloating Try walking around when you have cramps or feel bloated. Apply heat to your abdomen as told by your health care provider. Use a heat source that your health care provider recommends, such as a moist heat pack or a heating pad. ?Place a towel between your skin and the heat source. ?Leave the heat on for 20 30 minutes. ?Remove the heat if your skin turns bright red. This is especially important if you are unable to feel pain, heat, or cold. You may have a greater risk of getting burned. Eating and drinking Drink enough fluid to keep your urine pale yellow. Resume your normal diet as instructed by your health care provider. Avoid heavy or fried foods that are hard to digest. Avoid drinking alcohol for as long as instructed by your health care provider. Contact a health care provider if: You have blood in your stool 2 3 days after the procedure. Get help right away if: You have more than a small spotting of blood in your stool. You pass large blood clots in your stool. Your abdomen is swollen. You have nausea or vomiting. You have a fever. You have increasing abdominal pain that is not relieved with medicine. Summary After the procedure, it is common to have a small amount of blood in your stool. You may also have mild abdominal cramping and bloating. For the first 24 hours after the procedure, do not drive or use machinery, sign important documents, or drink alcohol. Contact your health care provider if you have a lot of blood in your stool, nausea or vomiting, a fever, or increased abdominal pain. This information is not intended to replace advice given to you by your health care provider. Make sure you discuss any questions you have with your health care provider. Document Released: 11/20/2004 Document Revised: 01/29/2018 Document Reviewed: 06/19/2016 [employer] Patient Education 2020 Printed Piece. 04/05/2023 13:00:31 Monitored Anesthesia Care, Care After Monitored Anesthesia Care, Care After These instructions provide you with information about caring for yourself after your procedure. Your health care provider may also give you more specific instructions. Your treatment has been planned according to current medical practices, but problems sometimes occur. Call your health care provider if you have any problems or questions after your procedure. What can I expect after the procedure? After your procedure, you may: Feel sleepy for several hours. Feel clumsy and have poor balance for several hours. Feel forgetful about what happened after the procedure. Have poor judgment for several hours. Feel nauseous or vomit. Have a sore throat if you had a breathing tube during the procedure. Follow these instructions at home: For at least 24 hours after the procedure: Have a responsible adult stay with you. It is important to have someone help care for you until you are awake and alert. Rest as needed. Do not: ?Participate in activities in which you could fall or become injured. ?Drive. ?Use heavy machinery. ?Drink alcohol. ?Take sleeping pills or medicines that cause drowsiness. ?Make important decisions or sign legal documents. ?Take care of children on your own. Eating and drinking Follow the diet that is recommended by your health care provider. If you vomit, drink water, juice, or soup when you can drink without vomiting. Make sure you have little or no nausea before eating solid foods. General instructions Take igpy-rxb-frszqko and prescription medicines only as told by your health care provider. If you have sleep apnea, surgery and certain medicines can increase your risk for breathing problems. Follow instructions from your health care provider about wearing your sleep device: ?Anytime you are sleeping, including during daytime naps. ?While taking prescription pain medicines, sleeping medicines, or medicines that make you drowsy. If you smoke, do not smoke without supervision. Keep all follow-up visits as told by your health care provider. This is important. Contact a health care provider if: You keep feeling nauseous or you keep vomiting. You feel light-headed. You develop a rash. You have a fever. Get help right away if: You have trouble breathing. Summary For several hours after your procedure, you may feel sleepy and have poor judgment. Have a responsible adult stay with you for at least 24 hours or until you are awake and alert. This information is not intended to replace advice given to you by your health care provider. Make sure you discuss any questions you have with your health care provider. Document Released: 07/29/2016 Document Revised: 07/07/2018 Document Reviewed: 07/29/2016 Elsevier Patient Education 2020 [employer] Follow Up Care 03/07/2023 07:46:55 With:AWA VILLAGOMEZ MD, Clinical Gastroenterology Address: [address] [place] [phone] When: Unknown Comments:Follow-up as needed [facility] 04-05-2023 Evaluation + Plan note Extrac jean from: Title:History and Physical Author:MAYURI VILLAGOMEZ MD Date:04/05/23 Orders: Lactated Ringers Infusion 1,000 mL, Start: 04/05/23 10:43:00 EST, Rate: 20 mL/hr, 04/05/23 10:43:00 EST Communication Order (scheduled) Communication Order (scheduled) Communication Order (scheduled) Consult to Anesthesia Sign Consent Screening colonoscopy. Consent conference held. Future Scheduled Tests Laboratory* Complete Blood Count 05/02/23 * Lipid Profile 05/02/23 [facility] 12-15-2023 Summary of episode note Discharge Instructions Thank you for allowing [facility] to assist you with your healthcare needs. The following is importantdischarge information regarding your hospital visit. Your Care Team TIFFANY ONTIVEROS APRN-CABLE TELEVISION TECHNICIAN Your Diagnosis Colonoscopy What to do next Follow Up Appointments Follow Up with AWA VILLAGOMEZ MD, Clinical Gastroenterology When Why: Follow-up as needed Where: [address] [place] [address] [phone] The Following Activity and Diet Have Been Ordered for You Discharge Activity - Ordered -- Other, Follow the post-operative/post-procedure activity instructions provided by your physician's office., 04/05/23 12:25:00 EST Discharge Diet - Ordered -- Follow the post-operative/post-procedure diet instructions provided by your physician's office.,04/05/23 12:25:00 EST Discharge Diet - Ordered -- Follow the post-operative/post-procedure diet instructions provided by your physician's office.,04/05/23 12:27:00 EST Allergies morphine Levsin (Vomiting) Medications Please ask your primary doctor or pharmacist before taking any other medication not listed, including over the counter drugs, herbal medications, vitamins and or supplements as they may interact withyour home medications. What How Much When Instructions Last Dose Unchanged amoxicillin-clavulanate (amoxicillin-clavulanate 500 mg-125 mg oral tablet) 1 tab(s) by mouth Every 12 hours Duration: 10 Days Unchanged fluticasone nasal (Flonase 50 mcg/ inh nasal spray) 1 spray(s) each nostril Once a day (in the morning) Unchanged naproxen (Aleve 220 mg oral capsule) 2 cap by mouth Once Please take this list to your next doctor s visit. Bring all medications you take, including over the counter medications, herbals and other supplements with you to your doctor s visit. Patients and families are reminded to discard old lists and to update any records with all medication providers or retail pharmacies. Education Materials Colon Polyps Polyps are tissue growths inside the body. Polyps can grow in many places, including the large intestine (colon). A polyp may be a round bump or a mushroom-shaped growth. You could have one polyp or several. Most colon polyps are noncancerous (benign). However, some colon polyps can become cancerous over time. Finding and removing the polyps early can help prevent this. What are the causes? The exact cause of colon polyps is not known. What increases the risk? You are more likely to develop this condition if you: Have a family history of colon cancer or colon polyps. Are older than 50 or older than 45 if you are . Have inflammatory bowel disease, such as ulcerative colitis or Crohn's disease. Have certain hereditary conditions, such as: ? Familial adenomatous polyposis. ? Fregoso syndrome. ? Turcot syndrome. ? Peutz Jeghers syndrome. Are overweight. Smoke cigarettes. Do not get enough exercise. Drink too much alcohol. Eat a diet that is high in fat and red meat and low in fiber. Had childhood cancer that was treated with abdominal radiation. What are the signs or symptoms? Most polyps do not cause symptoms. If you have symptoms, they may include: Blood coming from your rectum when having a bowel movement. Blood in your stool. The stool may look dark red or black. Abdominal pain. A change in bowel habits, such as constipation or diarrhea. How is this diagnosed? This condition is diagnosed with a colonoscopy. This is a procedure in which a lighted, flexible scope is inserted into the anus and then passed into the colon to examine the area. Polyps are sometimes found when a colonoscopy is done as part of routine cancer screening tests. How is this treated? Treatment for this condition involves removing any polyps that are found. Most polyps can be removed during a colonoscopy. Those polyps will then be tested for cancer. Additional treatment may be needed depending on the results of testing. Follow these instructions at home: Lifestyle Maintain a healthy weight, or lose weight if recommended by your health care provider. Exercise every day or as told by your health care provider. Do not use any products that contain nicotine or tobacco, such as cigarettes and e-cigarettes. If you need help quitting, ask your health care provider. If you drink alcohol, limit how much you have: ? 0 1 drink a day for women. ? 0 2 drinks a day for men. Be aware of how much alcohol is in your drink. In the [place] one drink equals one 12 oz bottle of beer (355 mL), one 5 oz glass of wine (148 mL), or one 1 oz shot of hard liquor (44 mL). Eating and drinking Eat foods that are high in fiber, such as fruits, vegetables, and whole grains. Eat foods that are high in calcium and vitamin D, such as milk, cheese, yogurt, eggs, liver, fish, and broccoli. Limit foods that are high in fat, such as fried foods and desserts. Limit the amount of red meat and processed meat you eat, such as hot dogs, sausage, henriquez, and lunch meats. General instructions Keep all follow-up visits as told by your health care provider. This is important. ? This includes having regularly scheduled colonoscopies. ? Talk to your health care provider about when you need a colonoscopy. Contact a health care provider if: You have new or worsening bleeding during a bowel movement. You have new or increased blood in your stool. You have a change in bowel habits. You lose weight for no known reason. Summary Polyps are tissue growths inside the body. Polyps can grow in many places, including the colon. Most colon polyps are noncancerous (benign), but some can become cancerous over time. This condition is diagnosed with a colonoscopy. Treatment for this condition involves removing any polyps that are found. Most polyps can be removed during a colonoscopy. This information is not intended to replace advice given to you by your health care provider. Make sure you discuss any questions you have with your health care provider. Document Released: 01/02/2005 Document Revised: 07/24/2018 Document Reviewed: 07/24/2018 [employer] Patient Education 2020 [employer] Colonoscopy, Adult, Care After This sheet gives you information about how to care for yourself after your procedure. Your health care provider may also give you more specific instructions. If you have problems or questions, contact your health care provider. What can I expect after the procedure? After the procedure, it is common to have: A small amount of blood in your stool for 24 hours after the procedure. Some gas. Mild abdominal cramping or bloating. Follow these instructions at home: General instructions For the first 24 hours after the procedure: ? Do not drive or use machinery. ? Do not sign important documents. ? Do not drink alcohol. ? Do your regular daily activities at a slower pace than normal. ? Eat soft, ozhh-op-eizdog foods. Take sqdw-ldo-fizmria or prescription medicines only as told by your health care provider. Relieving cramping and bloating Try walking around when you have cramps or feel bloated. Apply heat to your abdomen as told by your health care provider. Use a heat source that your healthcare provider recommends, such as a moist heat pack or a heating pad. ? Place a towel between your skin and the heat source. ? Leave the heat on for 20 30 minutes. ? Remove the heat if your skin turns bright red. This is especially important if you are unable to feel pain, heat, or cold. You may have a greater risk of getting burned. Eating and drinking Drink enough fluid to keep your urine pale yellow. Resume your normal diet as instructed by your health care provider. Avoid heavy or fried foods thatare hard to digest. Avoid drinking alcohol for as long as instructed by your health care provider. Contact a health care provider if: You have blood in your stool 2 3 days after the procedure. Get help right away if: You have more than a small spotting of blood in your stool. You pass large blood clots in your stool. Your abdomen is swollen. You have nausea or vomiting. You have a fever. You have increasing abdominal pain that is not relieved with medicine. Summary After the procedure, it is common to have a small amount of blood in your stool. You may also have mild abdominal cramping and bloating. For the first 24 hours after the procedure, do not drive or use machinery, sign important documents, or drink alcohol. Contact your health care provider if you have a lot of blood in your stool, nausea or vomiting, a fever, or increased abdominal pain. This information is not intended to replace advice given to you by your health care provider. Make sure you discuss any questions you have with your health care provider. Document Released: 11/20/2004 Document Revised: 01/29/2018 Document Reviewed: 06/19/2016 [employer] Patient Education 2020 [employer] [facility] Monitored Anesthesia Care, Care After These instructions provide you with information about caring for yourself after your procedure. Your health care provider may also give you more specific instructions. Your treatment has been plannedaccording to current medical practices, but problems sometimes occur. Call your health care provider if you have any problems or questions after your procedure. What can I expect after the procedure? After your procedure, you may: Feel sleepy for several hours. Feel clumsy and have poor balance for several hours. Feel forgetful about what happened after the procedure. Have poor judgment for several hours. Feel nauseous or vomit. Have a sore throat if you had a breathing tube during the procedure. Follow these instructions at home: For at least 24 hours after the procedure: Have a responsible adult stay with you. It is important to have someone help care for you until youare awake and alert. Rest as needed. Do not: ? Participate in activities in which you could fall or become injured. ? Drive. ? Use heavy machinery. ? Drink alcohol. ? Take sleeping pills or medicines that cause drowsiness. ? Make important decisions or sign legal documents. ? Take care of children on your own. Eating and drinking Follow the diet that is recommended by your health care provider. If you vomit, drink water, juice, or soup when you can drink without vomiting. Make sure you have little or no nausea before eating solid foods. General instructions Take kwat-gyb-qbqowbh and prescription medicines only as told by your health care provider. If you have sleep apnea, surgery and certain medicines can increase your risk for breathing problems. Follow instructions from your health care provider about wearing your sleep device: ? Anytime you are sleeping, including during daytime naps. ? While taking prescription pain medicines, sleeping medicines, or medicines that make you drowsy. If you smoke, do not smoke without supervision. Keep all follow-up visits as told by your health care provider. This is important. Contact a health care provider if: You keep feeling nauseous or you keep vomiting. You feel light-headed. You develop a rash. You have a fever. Get help right away if: You have trouble breathing. Summary For several hours after your procedure, you may feel sleepy and have poor judgment. Have a responsible adult stay with you for at least 24 hours or until you are awake and alert. This information is not intended to replace advice given to you by your health care provider. Make sure you discuss any questions you have with your health care provider. Document Released: 07/29/2016 Document Revised: 07/07/2018 Document Reviewed: 07/29/2016 [employer] Patient Education 2020 [employer] Additional Information VACCINATE! IT SAVES LIVES! Members of the community who have not yet received the COVID-19 vaccine and would like to receive it can visit one of [facility] vaccine clinics. There are many vaccine clinic locations within the [facility]. For locations and available times, please visit https://gettheshot.coronavirus.[place].gov/. It is important to note that some COVID mobile vaccine clinics are held outdoors and may be canceled in rainy or stormy conditions. To learn more about pediatric vaccinations (ages 5-11), we invite you to visit the [facility] webpage. https://www.[facility].org/pages/0248-Wzgac-Vxpgquhmqrc-Xdnzajhyfk-Asxtk-Miz stions.htmlTo learn more about the COVID-19 vaccine, we invite you to visit the CDC website for a list of frequently asked questions.https://www.cdc.gov/coronavirus/2019-ncov/vaccines/faq.html [facility] Patient Portal Access Instructions: Stay connected with your healthcare team and access your personal medical information anytime with the [facility] Patient Portal. Please follow the directions below to create your [facility] account: 1.Access the email account you provided upon registration to the hospital/physician office.2.Look for an invitation email from [facility].3.Open the email and access the invitation link: AcceptInvitation to [facility].4.Fill in the required butler to create your account. To access your account, visit [email or web address]. Click the blue button labeled Access Patient Portal and then log in with the username and password that you created in the steps above. You will be able to view your test results, lab results, a summary of your visits, upcoming appointments and more. There is also a convenient messaging option where you can send secure messages to your p rovider. In addition, you will have the ability to download any documents or summaries to your computer and/or send the information securely to a physician. Remember that your healthcare information is confidential, so carefully consider who you will allowto register on the [facility] Patient Portal for access to your information. You can also access the [facility] Patient Portal on the [facility] scar. Simply click on Patient Portal and then log into your account. If you would like to receive a full copy of your medical records, please contact the [facility] Medical Records Department by calling [phone], Saturday through Saturday between 8 a.m. and 4:30 p.m. HOW TO SAFELY DISPOSE OF PRESCRIPTION MEDICATIONS Please use one of the following methods to safely dispose of your unused medications. 1.Use a drug disposal kit: the drug disposal pouch allows you to safely discard your old and unuseddrugs. Ask your nurse to give you one when you are discharged.2.Visit a local take-back location: Many local pharmacies and police departments have programs that collect old and unwanted prescriptiondrugs. Call your local pharmacy or go to http://[employer].Neocutis/9R9Jk6z to find one close to you.3.Make use of household items: Use cat litter or old coffee grounds to dispose medications if other options arenot available. Mix your drugs with these household products, seal them in an airtight container andthrow it into the garbage. Call [facility]: [phone] to be sure your drugs can be disposed of in this way. Some medicines may require a different approach.4.Never flush your medications down the toilet. IF YOU HAVE BEEN PRESCRIBED AN OPIOID FOR PAIN If you have been prescribed an opioid (such as hydrocodone, oxycodone or morphine), it is critical to understand the possible side effects and risks of opioid pain medications. Even when taken as directed, opioids can have several side effects including: Tolerance, meaning you might need to take more of a medication for the same pain relief. Nausea, vomiting and/or constipation. Sleepiness, dizziness, dry mouth, confusion, depression or itching. Physical dependence, meaning you have withdrawal symptoms when a medication is stopped, can develop within a few days. KNOW YOUR RESPONSIBILITIES It is important to know exactly how much and how often to take the opioid pain medications you are prescribed. Never take opioids in higher amounts or more often than prescribed. Do not combine opioids with alcohol or other drugs that cause drowsiness, such as benzodiazepines, also known as benzos, including diazepam and alprazolam, muscle relaxants or sleep aids. Never sell or share prescription opioids. This is illegal. Store opioids in a secure place and out of reach of others (including children, family, friends and visitors). The last page of this document has been signed and retained as a CHART COPY. Signatures Patient Education Materials Colon Polyps Colonoscopy, Adult, Care After Monitored Anesthesia Care, Care After Medication Leaflets My discharge plan and instructions have been reviewed and explained to me and I,TRINA AGUILAR understand my current condition and have read and understand these discharge instructions. I have received a written copy of the plan/instructions. If I have questions, I am aware that I should contact my doctor. Patient/Cost Clerk Signature: Date/Time: Relationship to Patient: Witness Name/Signature: Date/Time: [facility]12-15-2023 Note Date of Service 04/05/2023 Chief Complaint He is here for screening colonoscopy History of Present Illness This is a preprocedural/presurgical H&P. The patient was originally evaluated by Wilmer Latif. Please refer to her note also. I independently and personally performed a history and physical examination with this patient and repeated the etienne components of the exam/history. I have reviewed her note. The patient was scheduled for endoscopy based on that visit and was evaluated by me prior to it. Voice recognition software was utilized for this document and may contain recognition errors inherent in that process. Physical Exam Vitals and Measurements T: 36.6 C (Temporal Artery) HR: 80(Apical) RR: 14 BP: 140/91 SpO2: 97% HT: 175.3 cm WT: 75 kg BMI: 24.41 Weight Dosing Weight: 75 kg (04/05/23) General appearance: The patient is alert and oriented and in no apparent distress. Vital signs werereviewed. HEENT: Hearing is appropriate. Sclera are clear and nonicteric. Nares normal. Oral mucosa is normal. Neck is free of lymphadenopathy. The trachea is midline. Chest: No supraclavicular lymphadenopathy. Lungs: Lungs are clear bilaterally. No rales or wheezing. Cardiac: No murmurs or gallops heard. Abdomen: Bowel sounds are present. The abdomen is soft, nontender. No palpable masses. No organomegaly. No inguinal lymphadenopathy. Rectal examination is deferred. Extremities: No cyanosis or clubbing. Neurology: No gross focal neurologic deficits. Integument: No telangiectasias or petechiae are seen. Lymphatic: No supraclavicular cervical inguinal adenopathy found Psychiatric examination: The patient is alert and oriented. Cognition seems appropriate. Recent andremote memory intact. Affect is appropriate. Lab Results No 36 Hour Lab Data Assessment/Plan Orders: Lactated Ringers Infusion 1,000 mL, Start: 04/05/23 10:43:00 EST, Rate: 20 mL/hr, 04/05/23 10:43:00EST Communication Order (scheduled) Communication Order (scheduled) Communication Order (scheduled) Consult to Anesthesia Sign Consent Screening colonoscopy. Consent conference held. Problem List/Past Medical History Ongoing No qualifying data Historical No qualifying data Procedure/Surgical History ESWL - Extracorporeal shockwave lithotripsy for renal calculus: 08/24/19 Tonsillectomy Medications Home Medications (3) Active Aleve 220 mg oral capsule 440 mg = 2 cap(s), Oral, Once amoxicillin-clavulanate 500 mg-125 mg oral tablet 1 tab(s), Oral, q12h Flonase 50 mcg/inh nasal spray 1 spray(s), Nostril, each, qAM Allergies morphine Levsin (Vomiting) Social History Smoking Status - 05/02/2017 Never smoker Alcohol - Low Risk, 05/02/2017 Use: Current. Frequency: 1-2 times per week., 12/31/2018 Home/Environment Self Primary Cognos Bi Developer:., 12/30/2018 Nutrition/Health Type of diet: Regular. Appetite Good. Eating Difficulties None. Caffeine intake amount: One Energy drink daily., 01/25/2023 Substance Abuse - Denies Substance Abuse, 05/02/2017 Use: Never., 12/30/2018 Tobacco - No Risk, 08/22/2019 Tobacco Use: Never (less than 100 in lifetime)., 12/31/2018 Family History Family history is unknown Immunizations No qualifying data available. Code Status No qualifying data available. Digitally Signed by AWA VILLAGOMEZ MD on 04/05/2023 12:06 PM [facility]12-15-2023 Anesthesiology Consult note Patient: TRINA AGUILAR Age: 47 years Sex: Male : 1975 Associated Diagnoses: None Author: STIVEN FOSS APRN-WET MACHINE TENDER Preoperative Information Time of last food or liquid consumption: 04/04/2023 23:59:00 Anesthesia history Patient's history: negative. Family's history: negative. Review of Systems Ear/Nose/Mouth/Throat: Negative except as documented in history of present illness. Respiratory: Negative except as documented in history of present illness. Cardiovascular: Negative except as documented in history of present illness. Gastrointestinal: Negative except as documented in history of present illness. Genitourinary: Negative except as documented in history of present illness. Endocrine: Negative except as documented in history of present illness. Musculoskeletal: Negative except as documented in history of present illness. Integumentary: Negative except as documented in history of present illness. Neurologic: Negative except as documented in history of present illness. Health Status Allergies: Allergic Reactions (Selected) Mild Morphine- No reactions were documented. Severity Not Documented Levsin- Vomiting., Allergies (2) ActiveReaction morphineNone Documented LevsinVomiting Current medications: (Selected) Inpatient Medications Ordered Lactated Ringers Infusion 1,000 mL: 20 mL/hr, Intravenous Documented Medications Documented Aleve 220 mg oral capsule: 440 mg, 2 cap(s), Oral, Once, 0 Refill(s) Flonase 50 mcg/inh nasal spray: 1 spray(s), Nostril, each, qAM, 0 Refill(s) amoxicillin-clavulanate 500 mg-125 mg oral tablet: 1 tab(s), Oral, q12h, for 10 day(s), 20 tab(s), 0 Refill(s), Medications (1) Active Scheduled: (0) Continuous: (1) Lactated Ringers 1,000 mL 1,000 mL, Intravenous, 20 mL/hr PRN: (0) Problem list: No problem items selected or recorded., Active Problems (1) COVID-19 Histories Past Medical History: No active or resolved past medical history items have been selected or recorded. Family History: History is unknown. Procedure history: ESWL - Extracorporeal shockwave lithotripsy for renal calculus ([id number]) on 08/24/2019 at 43 Years. Comments: 08/24/2019 13:20 EDT - Kavita Greene RN RIGHT SIDE Cystoscopy ([id number]) on 08/24/2019 at 43 Years. Tonsillectomy ([id number]). Social History Social & Psychosocial Habits Alcohol 03/06/2023Risk Assessment: Low Risk 03/06/2023 Use: Current Frequency: 1-2 times per week Comment: Occ - 12/30/2018 10:53 - Nichole Wells LPN Substance Abuse 03/06/2023Risk Assessment: Denies Substance Abuse 03/06/2023 Use: Never Tobacco 03/06/2023 Tobacco Use: Never (less than 100 in l Comment: no smoke exposure - 12/31/2018 15:44 - Pam Langford RN 03/06/2023Risk Assessment: No Risk Home/Environment 03/06/2023 Primary Cognos Bi Developer: Self Nutrition/Health 03/06/2023 Type of diet: Regular Appetite Good Eating Difficulties None Caffeine intake amount: One Energy drink daily . Physical Examination Vital Signs 04/05/2023 10:49 EST Temperature Temporal Artery 36.6 DegC Apical Heart Rate 80 bpm Respiratory Rate 14 br/min Systolic Blood Pressure Non-Invasive 140 mmHg Diastolic Blood Pressure Non-Invasive 91 mmHg HI Blood Pressure Method Automatic Blood Pressure Location Left arm Blood Pressure Cuff Size Large Vital Signs(last 24 hrs) Last Charted Resp Rate 14 br/min (APR 05 10:49) ANF133 mmHg (APR 05 10:49) DBPH 91mmHg (APR 05 10:49) BMI24.41 (APR 05 10:49) Measurements from flowsheet : Measurements 04/05/2023 10:49 EST Height 175.3 cm Admission Weight 75 kg Weight Method Stated [place] Body Weight 70.74 kg BSA Admission 1.91 Body Mass Index 24.41 kg/m2 Pain assessment: Pain Assessment 04/05/2023 10:49 EST Primary Pain Intensity 0 Pain Scale Type 0-10 Pain scale . General: Alert and oriented. Airway: Normal neck range of motion. Mallampati classification: II (soft palate, fauces, uvula visible). Head: Normocephalic. Dentition Evaluation: Intact, Own teeth. Neck: Full range of motion. Respiratory: Lungs are clear to auscultation. Cardiovascular: Normal rate. Heart Sounds: Normal. Gastrointestinal: Soft. Musculoskeletal Normal range of motion. Integumentary: Intact, Warm, Dry. Neurologic: Alert, Oriented. Review / Management Results review: No qualifying data available , Lab results 04/05/2023 11:07 EST Lactated Ringers Injection Begin Bag 1,000 mL mL 04/05/2023 11:05 EST Continuous IV Infusions LR Hand Right 04/05/2023 22 gauge Peripheral IV Activity: Insert new site Peripheral IV Dressing Condition: Clean, Dry, Intact Peripheral IV Dressing Activity: Applied, Transparent dressing Peripheral IV Line Status/Patency: Flushes easily, Continuous infusion Peripheral IV Site Condition: No complications Peripheral IV Equipment: Extension set 04/05/2023 10:54 EST IV Present Present Allergies Yes Anesthesia Extension Set Applied Yes Ux Developer On Yes Colon Prep Results Excellent Consent Form Signed Yes Patient Dressed In Hospital gown History & Physical Update On Chart Yes History & Physical On Chart Yes Belongings At Bedside Glasses, Pants, Shirt, Shoes, Socks, Undergarments NPO Status Maintained Allergy Band on and Verified Yes Patient ID Band on and Verified Yes Implants Verified Yes Pacemaker/AICD Verified Yes Site Verified by Patient/Family Yes Anesthesia Consent Signed Yes Last Fluid Intake 04/05/2023 7:00 Last Food Intake 04/03/2023 18:00 04/05/2023 10:49 EST Designated Person #1 We May Share [facility] [phone] (Nikki) Designated Person #1 Relationship Mother Designated Person #2 We May Share PHI Designated Person #2 We May Share PHI Height 175.3 cm Admission Weight 75 kg Weight Method Stated [place] Body Weight 70.74 kg BSA Admission 1.91 Body Mass Index 24.41 kg/m2 Temperature Temporal Artery 36.6 DegC Apical Heart Rate 80 bpm Respiratory Rate 14 br/min Systolic Blood Pressure Non-Invasive 140 mmHg Diastolic Blood Pressure Non-Invasive 91 mmHg HI Blood Pressure Method Automatic Blood Pressure Location Left arm Blood Pressure Cuff Size Large Primary Pain Intensity 0 Pain Scale Type 0-10 Pain scale Heart Rhythm Regular Cardiac Rhythm Sinus rhythm Oxygen Therapy Room air Oxygen Saturation 97 % Status N/A Sensory Deficits None Infectious Disease Symptoms Patient states no symptoms Infectious Disease Recent Exposure No Alcohol and Drug Use No Employee of Institutional Living No Health Care Employee No History of Exposure to TB No History of Positive Chest X-Ray for TB No History of Positive TB Skin Test No Homeless No Known Immunosuppression No Recent Immigrant No Resident of Institutional Living No Bloody Sputum No Fatigue No Fever No Loss of Appetite No Night Sweats No Persistent Cough > 3 Weeks No Weight Loss No Arrival Mode Ambulatory Accompanied By On Arrival Family Contact Name and Number Kiersten GI Prep Miralax GI Prep Completed Yes GI Prep Results Yellow, Clear Barriers to Learning None evident Teaching Method Explanation, Printed materials Preferred Spoken Language Moldovan Preferred Written Language Moldovan Information Given by Unable to obtain Patient's Current Physicians Baltes Discharge To, Anticipated Home independently Activity Status ADL Awake Standard Safety ID band on, Allergy Band on, Call device within reach, Bed in low position, Wheels locked, Safety level maintained Prev Test Positive/Diagnosis w/COVID-19 Yes Previous COVID-19 Positive Date dec 2020 Current Quarantine/Isolated any Illness No Any Contact with Sick Animals/Birds No Traveled Anywhere in Last 30 Days No N/A Personal Devices, Patient Valuables Glasses Admission Note-Nursing Procedure/Therapy Intake . Assessment and Plan [place] Society [employer] Anesthesiologists (ASA) physical status classification: Class I. Anesthetic Preoperative Plan Premedication: intravenous. Anesthetic technique: MAC. Induction: intravenously. Maintenance airway: Mask. Risks discussed: nausea, vomiting, headache, sore throat, dental injury, hypotension, allergic reaction, serious complications. Informed consent: signed by patient. Digitally Signed by STIVEN FOSS on 04/05/2023 12:04 PM [facility] Future Appointments Appointment Date:02/27/2024 04:00:00 PM Scheduled Provider:TIFFANY ONTIVEROS Location:[facility] Appointment Type:PC OV Future Scheduled Tests Laboratory* Complete Blood Count 05/02/23 * Lipid Profile 05/02/23 [facility] Evaluation + Plan note Future Appointments Appointment Date:04/09/2024 03:00:00 PM Scheduled Provider:TIFFANY ONTIVEROS Location:[facility] Appointment Type:PC OV Future Scheduled Tests Laboratory* Complete Blood Count 05/02/23 * Lipid Profile 05/02/23 * Lipid Profile 02/27/24 Radiology* CT Coronary Calcium Score w/o Contrast 02/27/24 [facility] Hospital course Narrative No data available for this section [facility] Hospital Discharge instructions No data available for this section [facility] Progress note No data available for this section [facility] Summary Purpose Family History No Family History Records Found No data available for this section No Family History Records Found No data available for this section No data available for this section No Family History Records Found No data available for this section Advance Directives No Advanced Directives Records FoundNo Advanced Directives Records FoundNo Advanced Directives Records Found Additional Source Comments (unrecognized sect ion and content) No Status Records FoundNo Status Records FoundNo Status Records Found INFORMATION SOURCE (unrecogn ized section and content) DATE CREATED AUTHOR 02/10/[address] [facility] DATE CREATED AUTHOR AUTHOR'S ORGANIZ ATION 07/16/[address] [facility] ([place]) DATE CREATED AUTHOR AUTHOR'S ORGANIZ ATION 03/13/2024 [facility] Patient Care team informatio n (unrecognized section and content) Care Team Personnel Name: TIFFANY ONTIVEROSCABLE TELEVISION TECHNICIAN Position: P4 Advanced Packaging Design Engineer Member Role: Primary Care Physician Address: Address: [address] [place] [address] Care Team Related Persons Name: KIERSTEN OROZCO Care Team Personnel Name: RAMA TIFFANY CARIASCABLE TELEVISION TECHNICIAN Position: P[employer] Design Engineer Member Role: Primary Care Physician Address: Address: [address] [place] [address] Care Team Related Persons Name: KIERSTEN OROZCO Care Team Personnel Name: RAMATIFFANY APRN-CABLE TELEVISION TECHNICIAN Position: [employer] Advanced [employer]aging Design Engineer Member Role: Primary Care Physician Address: Address: [address] [place] [address] Care Team Related Persons Name: KIERSTEN OROZCO Care Team Personnel Name: RAMATIFFANYCABLE TELEVISION TECHNICIAN Position: P4 Advanced Packaging Design Engineer Member Role: Primary Care Physician Address: Address: [address] [place] [address] Care Team Related Persons Name: KIERSTEN OROZCO FOR RECORDS PERTAINING TO PATIENTS WHO ARE OR HAVE BEEN ENROLLED IN A CHEMICAL DEPENDENCY/SUBSTANCEABUSE PROGRAM, SOME INFORMATION MAY BE OMITTED. This clinical summary was aggregated from multiple sources. Caution should be exercised in using it in the provision of clinical care. This summary normalizes information from multiple sources, and as a consequence, information in this document may materially change the coding, format and clinical context of patient data. In addition, data may be omitted in some cases. CLINICAL DECISIONS SHOULD BE BASED ON THE PRIMARY CLINICAL RECORDS. [facility] [employer] provides no warranty or guarantee of the accuracy or completeness of information in this document.
[2024-09-26 06:23] LABS: Red Blood Cells-Urine 0-5 SEEN /hpf (0-5)
[2024-09-26 06:54] LABS: Differential Indicated SCAN CRITERIA MET
[2024-09-26 06:55] LABS: Differential Comment SCANNED; Platelet Estimate ADEQUATE (ADEQ)
[2024-09-26 07:07] VITALS: BP 123/80; PULSE 58; RESP 16; TEMP 36.7; O2SAT 97
== END 2024-09-26 07:10 | disposition home or self-care (01) ==
PROVIDERS: Emergency Provider Emergency Medicine; PCP Nurse Practitioner Primary Care; Visit Provider Emergency Medicine
DX: N20.2 Calculus of kidney with calculus of ureter (principal); Z87.442 Personal history of urinary calculi
CPT/HCPCS: 74176; 80048; 81001; 85025; 96374; 96375; 99282; A4216; J2405